=== PATIENT | male | born 1995 | race Two or more races ===

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

== ENCOUNTER 2017-01-29 14:13 | Emergency (ER) | payer MEDICARE, OTHER, MEDICAID ==
[~2017-01-29] VITALS: Ht 152.4 cm; Wt 52.3 kg
[2017-01-29] MEDS ORDERED: GUAN1TA (14:31)
[2017-01-29] MEDS ORDERED: RISP0.5T3 (14:31)
[2017-01-29] MEDS ORDERED: ALPR0.5T3 (14:31)
[2017-01-29] MEDS ORDERED: GABA600T (14:31)
[2017-01-29] MEDS ORDERED: DEXM1CAP16 (14:31)
[2017-01-29] MEDS ORDERED: CLON-412 (14:31)
[2017-01-29] MEDS ORDERED: GABA-282 (14:31)
[2017-01-29] MEDS ORDERED: CLON0.5T (14:31)
[2017-01-29] MEDS ORDERED: RISP1TAB3 (14:31)
[2017-01-29 18:50] LABS: BASO # 0.1 K/mm3 (0.0-0.2); BASO % 0.9 % (0.0-1.0); EOS # 0.4 K/mm3 (0.0-0.50); EOS % 5.2 % (0.0-3.0); LARGE UNSTAINED CELL # 0.2 K/mm3 (0.0-0.4); LARGE UNSTAINED CELL % 1.9 % (0.0-4.0); LYMPH % 34.6 % (24.0-44.0); MEAN CORPUSCULAR HEMOGLOBIN 31.1 pg (27.0-33.0); MEAN CORPUSCULAR HGB CONC 35.8 g/dl (32.0-36.5); MONO # 0.4 K/mm3 (0.0-0.8); MONO % 4.9 % (0.0-5.0); NEUTROPHILS # 4.3 K/mm3 (1.8-7.7); NEUTROPHILS % 52.5 % (36.0-66.0); PLATELET COUNT, AUTOMATED 214 k/mm3 (150-450); RED CELL DISTRIBUTION WIDTH 11.9 % (11.5-14.5); WHITE BLOOD COUNT 8.2 K/mm3 (4.0-10.0)
[2017-01-29 19:08] LABS: ALBUMIN 4.4 GM/DL (3.2-5.2); ALBUMIN/GLOBULIN RATIO 1.33 (1.00-1.93); BILIRUBIN,DIRECT 0.1 MG/DL (0.0-0.2); BILIRUBIN,TOTAL 0.4 MG/DL (0.2-1.0); TOTAL PROTEIN 7.7 GM/DL (6.4-8.2)
[2017-01-29 19:15] LABS: ANION GAP 8 MEQ/L (8-16); BLOOD UREA NITROGEN 21 MG/DL (7-18); CALCIUM LEVEL 8.8 MG/DL (8.5-10.1); CARBON DIOXIDE LEVEL 29 MEQ/L (21-32); CHLORIDE LEVEL 103 MEQ/L (98-107); CREATININE FOR GFR 0.71 MG/DL (0.70-1.30); GLUCOSE, FASTING 94 MG/DL (70-105); POTASSIUM SERUM 3.6 MEQ/L (3.5-5.1); SODIUM LEVEL 140 MEQ/L (136-145)
[2017-01-29] MEDS ORDERED: CETIRIZINE (ZyrTEC) 10 MG TAB PO ONE (20:00)
[2017-01-29] MEDS ORDERED: risperiDONE 2 MG TAB PO ONE (20:00)
[2017-01-29] MEDS ORDERED: GABAPENTIN 300 MG CAP PO ONE (20:00)
[2017-01-29] MEDS ORDERED: cloNIDine 0.1 MG TAB PO ONE (20:00)
[2017-01-29] MEDS ORDERED: guanFACINE 1 MG TAB PO ONE (21:00)
[2017-01-29] MEDS ORDERED: XANA0.5T PO (21:36)
[2017-01-29] MEDS ORDERED: RISP1TAB3 PO (21:36)
[2017-01-29] MEDS ORDERED: RISP2TAB32 PO (21:36)
[2017-01-29] MEDS ORDERED: RISP0.5T3 PO (21:48)
[2017-01-29] MEDS ORDERED: ALPRAZolam 0.25 MG TAB PO ONE (22:15)
[2017-01-30] MEDS ORDERED: INTU1TAB PO (12:18)
[2017-01-30] MEDS ORDERED: CLON0.5T PO (12:18)
[2017-01-30] MEDS ORDERED: CETI1SYP16 PO (12:18)
[2017-01-30] MEDS ORDERED: GABA-282 PO (12:18)
[2017-01-30] MEDS ORDERED: CLONI1TA PO (12:18)
[2017-01-30] MEDS ORDERED: FOCA20CA PO (12:18)
[2017-01-30] MEDS ORDERED: XANA0.5T PO (12:18)
[2017-01-30] MEDS ORDERED: GABA600T PO (12:18)
[2017-01-30] MEDS ORDERED: CETI10TA PO (12:21)
[2017-01-30] MEDS ORDERED: PULM0.25 INH (12:23)
[2017-01-30] MEDS ORDERED: FLON1SPR (12:23)
[2017-01-30] MEDS ORDERED: guanFACINE 1 MG TAB PO SCH (13:15)
[2017-01-30] MEDS ORDERED: GABAPENTIN 300 MG CAP PO ONE (13:15)
[2017-01-30] MEDS ORDERED: clonazePAM 0.5 MG TAB PO ONE (13:15)
[2017-01-30] MEDS ORDERED: risperiDONE 1 MG TAB PO ONE (13:15)
[2017-01-30] MEDS ORDERED: ENTER DRUG NAME HERE (PATIENT'S OWN MED) PO SCH (13:15)
[2017-01-30] MEDS ORDERED: FOCALIN PO ONE (13:15)
[2017-01-30 13:50] VITALS: BP 119/72
[2017-01-30] MEDS ORDERED: GUAN1TA PO (13:53)
[2017-01-30 16:24] VITALS: BP 143/82
--- NOTE | 2017-02-01 10:02 | MHCR ---
DATE: 01/30/2017 CHIEF COMPLAINT: He has been aggressive and agitated. SUBJECTIVE: He is 21 years old, has a history of autism, lives with his parents. He is seen for treatment essentially at a [facility], a local facility here in [place], sees a nurse practitioner there, is on various medications, which include risperidone a total of 3.5 mg daily, clonidine 0.1 mg. He is on clonazepam as well, dose is 0.5 mg but the frequency is unclear and the same applies for the guanfacine and the gabapentin. He is also apparently on dexmethylphenidate at 20 mg daily, as well as alprazolam 0.5 mg daily as needed for anxiety. He has been living with his parents, and I understand there are no outside services that he participates in. He has been increasingly agitated, aggressive over the last several weeks, possibly a couple of months, and medication changes have been made by the nurse practitioner, with limited effect. He has become quite aggressive recently and was aggressive towards his parents. The nurse practitioner was informed and police were called. They, at that time, did not find enough for a pickup letter, as he was calm when they had seen him, and the parents brought him to the hospital later, indicating they were quite concerned about his condition, and ability to maintain their safety as well. Has had no previous inpatient hospitalizations as far as I am aware. It should be noted the history is only available from what was obtained from the parents, and the emergency room (ER) record, the patient is very verbal and tends to repeat himself, and is unable to provide a history. MEDICATIONS: As stated above. SOCIAL HISTORY: Lives with his parents, attends outpatient care, as stated above, no inpatient hospitalizations and no suicide attempts as far as I am aware. Has not received any outside assistance either. MENTAL STATUS EXAM: He is fairly neat. He is in hospital clothes, cooperative but mildly irritable, not very coherent, repetitive, "go home." Affect is restricted in range. Unable to indicate if he has any actual desires or plans to hurt himself or anyone else. At present, does not appear internally preoccupied. There is no fluctuation of consciousness. His sensorium is clear, but I am unable to determine if he is oriented to place or time, given his considerable limitations. ASSESSMENT: Autistic spectrum disorder He has been more agitated, aggressive the last several weeks, possibly couple of months. He lives with his parents, has been increasingly aggressive towards them, and they do not feel safe with him at present. He has had medication changes made by outpatient clinician with limited effect. RECOMMENDATIONS: Would benefit from a respite facility to help decrease his agitation and aggression. In my opinion, it is not in his interest at present to be admitted to an inpatient psychiatry facility, given his considerable limitations, cognitively and verbally, and the nature of an inpatient adult psychiatric facility would most likely increase his distress, and likelihood of further agitation. I understand staff contacted [facility] and they do not have any space at their respite facility at present. He will be kept here overnight in the emergency room and a respite bed will be looked for tomorrow as well (tomorrow is Tuesday). Given the special circumstances, related to his condition, and home situation, the plan was discussed with hospital administration, including Cam Martínez, nurse property manager at the inpatient psychiatry unit, and Lo Cantu, the home administrator for behavioral health. The assessment took 30 minutes.
== END 2017-01-30 16:37 | disposition home or self-care (01) ==
LOC: M ED 15:39
DX: F91.9 Conduct disorder, unspecified (principal); F84.0 Autistic disorder
CPT/HCPCS: 36415; 80048; 80076; 84443; 85025; 99284; G0480

== ENCOUNTER → 2017-03-28 | Outpatient (CLI) | payer MEDICARE, OTHER, MEDICAID ==
[~2017-03-28] MED LIST: ALPR0.5T3; CETI10TA PO; CETI1SYP16 PO; CLON-412; CLON-412 PO; CLON0.5T; CLON0.5T PO; CLONI1TA PO; CYPR4TA PO; DEXM1CAP16; FLON1SPR; FOCA20CA PO; GABA-282; GABA-282 PO; GABA600T; GABA600T PO; GUAN1TA; GUAN1TA PO; INTU1TAB PO; MIRA33504 PO; OLAN10TA2; PEG1POW PO; PULM0.25 INH; RISP0.5T3; RISP0.5T3 PO; RISP1TAB3; RISP1TAB3 PO; RISP2TAB32 PO; XANA0.5T PO; ZYPR10TA PO
[2017-03-28 17:38] LABS: BASO % 0.5 % (0.0-1.0); EOS # 0.2 10^3/uL (0.0-0.50); EOS % 1.9 % (0.0-3.0); IMMATURE GRANULOCYTE % 0.2 % (0-0); LYMPH # 2.5 10^3/uL (1.5-6.5); LYMPH % 29.6 % (24.0-44.0); MEAN CORPUSCULAR HGB CONC 33.8 g/dl (32.0-36.5); MEAN CORPUSCULAR VOLUME 88.7 fl (80.0-96.0); MONO # 0.7 10^3/uL (0.0-0.8); MONO % 7.7 % (0.0-5.0); NEUTROPHILS # 5.1 10^3/uL (1.8-7.7); NEUTROPHILS % 60.1 % (36.0-66.0); PLATELET COUNT, AUTOMATED 235 10^3/uL (150-450); RED CELL DISTRIBUTION WIDTH 11.8 % (11.5-14.5); WHITE BLOOD COUNT 8.5 10^3/uL (4.0-10.0)
[2017-03-28 18:18] LABS: ALBUMIN 4.6 GM/DL (3.2-5.2); ALBUMIN/GLOBULIN RATIO 1.44 (1.00-1.93); ALKALINE PHOSPHATASE 105 U/L (45-117); ALT/SGPT 62 U/L (12-78); ANION GAP 11 MEQ/L (8-16); AST/SGOT 37 U/L (15-37); BILIRUBIN,TOTAL 0.6 MG/DL (0.2-1.0); BLOOD UREA NITROGEN 16 MG/DL (7-18); CALCIUM LEVEL 9.1 MG/DL (8.5-10.1); CARBON DIOXIDE LEVEL 26 MEQ/L (21-32); CHLORIDE LEVEL 104 MEQ/L (98-107); CREATININE FOR GFR 0.96 MG/DL (0.70-1.30); FREE T4 1.48 NG/DL (0.78-1.33); GLUCOSE, FASTING 77 MG/DL (70-105); POTASSIUM SERUM 3.5 MEQ/L (3.5-5.1); SODIUM LEVEL 141 MEQ/L (136-145); TOTAL PROTEIN 7.8 GM/DL (6.4-8.2)
== END ==
LOC: M WUC 14:42
PROVIDERS: ATTEND Physician Assistant
DX: R63.0 Anorexia (principal)

== ENCOUNTER 2017-04-18 10:51 | Observation (INO) | payer MEDICARE, OTHER, MEDICAID ==
[~2017-04-18] VITALS: Ht 154.9 cm; Wt 43.0 kg
[~2017-04-18 10:51] MED LIST changes: -CLON-412 PO; -CYPR4TA PO; -MIRA33504 PO; -OLAN10TA2; -PEG1POW PO; -ZYPR10TA PO
[2017-04-18] MEDS ORDERED: OLAN10TA2 (10:58)
[2017-04-18] MEDS ORDERED: ZYPR10TA PO (10:58)
[2017-04-18] MEDS ORDERED: CYPR4TA PO (10:58)
[2017-04-18] MEDS ORDERED: CLON-412 PO (10:58)
[2017-04-18 11:57] LABS: BASO % 0.6 % (0.0-1.0); EOS % 0.2 % (0.0-3.0); IMMATURE GRANULOCYTE % 0.2 % (0-0); LYMPH # 1.4 10^3/uL (1.5-6.5); LYMPH % 22.6 % (24.0-44.0); MEAN CORPUSCULAR HEMOGLOBIN 29.6 pg (27.0-33.0); MEAN CORPUSCULAR HGB CONC 34.6 g/dl (32.0-36.5); MEAN CORPUSCULAR VOLUME 85.5 fl (80.0-96.0); MONO # 0.8 10^3/uL (0.0-0.8); MONO % 12.2 % (0.0-5.0); NEUTROPHILS # 4.1 10^3/uL (1.8-7.7); NEUTROPHILS % 64.2 % (36.0-66.0); PLATELET COUNT, AUTOMATED 189 10^3/uL (150-450); RED CELL DISTRIBUTION WIDTH 12.1 % (11.5-14.5); WHITE BLOOD COUNT 6.3 10^3/uL (4.0-10.0)
[2017-04-18] MEDS ORDERED: NS 1,000 ML IV ONE ×2 (12:15→14:00)
[2017-04-18 12:46] LABS: ALBUMIN/GLOBULIN RATIO 1.11 (1.00-1.93); ALKALINE PHOSPHATASE 101 U/L (45-117); ALT/SGPT 48 U/L (12-78); ANION GAP 9 MEQ/L (8-16); AST/SGOT 40 U/L (7-37); BILIRUBIN,DIRECT 0.2 MG/DL (0.0-0.2); BILIRUBIN,TOTAL 0.8 MG/DL (0.2-1.0); BLOOD UREA NITROGEN 14 MG/DL (7-18); CALCIUM LEVEL 9.4 MG/DL (8.5-10.1); CARBON DIOXIDE LEVEL 26 MEQ/L (21-32); CHLORIDE LEVEL 103 MEQ/L (98-107); CREATININE FOR GFR 0.68 MG/DL (0.70-1.30); GLUCOSE, FASTING 85 MG/DL (70-105); SODIUM LEVEL 138 MEQ/L (136-145); TOTAL PROTEIN 7.6 GM/DL (6.4-8.2)
[2017-04-18 13:54] LABS: ERYTHROCYTE SEDIMENTATION RATE 20 mm/hr (0-15)
[2017-04-18] MEDS ORDERED: SODIUM CHLORIDE 0.9% 1000 ML IV ONE (17:15)
--- NOTE | 2017-04-18 17:57 | REP ---
CT abdomen and pelvis without IV or oral contrast: History: Abdomen pain. Periumbilical pain. Findings: Preliminary digital release specialist radiograph demonstrates air and stool filled loops of colon and air filled loops of small bowel throughout the abdomen. The lung bases are clear. The liver and the spleen are normal in size and homogeneous in texture. There is some motion artifact. There is low-density fecal content throughout the dilated colon. There is a formed stool ball in the region of the rectosigmoid colon, central pelvis. This measures 6.3 x 6.3 x 6.7 cm. There is no evidence of free intraperitoneal air. Gas distended rectum is seen distal to the formed stool in the sigmoid colon. Study is otherwise unremarkable. No abdominal wall defect or bony destructive lesion seen. Impression: Fecal impaction obstipation noted at the level of the rectosigmoid colon with a 6.6 cm "fecoma". Dilated large and small bowel loops throughout the abdomen. No evidence of free air. Signed by Clifford Duong MD 04/18/2017 07:46 P
[2017-04-18] MEDS ORDERED: ACETAMINOPHEN TAB 650MG DOSE (2X325MG) PO PRN (19:15)
[2017-04-18] MEDS ORDERED: GOLYTELY SOLN 4000 ML BTL PO ONE (19:15)
[2017-04-18] MEDS ORDERED: ONDANSETRON 4MG/2ML VIAL (J2405) IV PRN (19:15)
[2017-04-18] MEDS ORDERED: LORazepam 2 MG/ML VIAL (J2060) IV STA ×3 (19:34→19:45)
[2017-04-18] MEDS ORDERED: MIRA33504 PO (19:42)
[2017-04-18 19:57] LABS: T UPTAKE 33 % (33-40); THYROXINE (T4) 12.4 UG/DL (6.0-11.6)
[2017-04-18] MEDS ORDERED: SODIUM CHLORIDE NASAL 0.65% SPRAY BTL (OCEAN) PRN (20:15)
[2017-04-18] MEDS: OLANZapine 10 MG TAB PO SCH (21:00)
[2017-04-18] MEDS: guanFACINE 1 MG TAB PO SCH (21:00)
[2017-04-18] MEDS: FLUTICASONE PROP 0.05% NASAL SPRAY 16 GM (FLONASE) SCH (21:00)
[2017-04-18 21:37] VITALS: BP 120/79
[2017-04-18] MEDS: GABAPENTIN 300 MG CAP PO SCH (22:26)
[2017-04-18] MEDS: cloNIDine 0.1 MG TAB PO SCH (22:27)
[2017-04-18] MEDS: CETIRIZINE (ZyrTEC) 10 MG TAB PO SCH (22:27)
[2017-04-18] MEDS: NS 1,000 ML IV SCH (22:28)
--- NOTE | 2017-04-19 04:21 | HPEPDOC ---
General Date of Admission Apr 18, 2017 at 19:11 Primary Care Physician: PETE ANDERSON MD Attending Physician: CHERYL BLANCO MD Chief Complaint The patient is a 22-year-old male admitted with a reason for visit of Fecal Impaction. History of Present Illness Patient is a 22 yo male with PMH significant for Autism, ADHD, and chronic constipation presents emergency room with constipation and fecal impaction. Patient had appointment to establish care with Dr. Anderson today. Had been sent over to the ER to be evaluated for kidney function because on UA patient had sediment. Upon arrival patient has chronic constipation often. For the past 4-6 weeks he has had off and on fevers. Not eating as much as he used to. Only eating applesauce and yogurt. Used to eat regular foods prior. Has been spitting out his food and not finishing meals. Has had temperatures from 101 to 103F. Been being treated with Motrin and Tylenol. Since patient has autism does not express many symptoms. Does report occasional tummy aches but this is normal for him. Does have a cough but is nonproductive. Hasn't having runny noses and is being treated with sertraline and Flonase. No pain reported. Last bowel movement was this morning. No bloody or dark tarry stool. Home Medications Scheduled (Flonase Allergy Relief) 50 Mcg/Act Spr, 2 SPRAYS NA QHS, (Reported) Budesonide (Pulmicort) 0.25 Mg/2 Ml Myla, 0.25 MG INH BID, (Reported) Cetirizine HCl (Cetirizine HCl) 10 Mg Tab, 10 MG PO QHS, (Reported) Clonidine Hcl (Catapres) 0.1 Mg Tab, 0.05 MG PO QPM, (Reported) Cyproheptadine HCl (Cyproheptadine HCl) 4 Mg Tab, 4 MG PO DAILY, (Reported) Gabapentin (Gabapentin) 300 Mg Cap, 300 MG PO BID, (Reported) Guanfacine HCl (Guanfacine HCl) 1 Mg Tab, 1 MG PO TID, (Reported) Olanzapine (Zyprexa) 10 Mg Tab, 10 MG PO BID, (Reported) TAKES @ 1100 & HS Polyethylene Glycol (Peg 3350) 1 Pkt Pow, 1 PKT PO DAILY Scheduled PRN Clonidine Hydrochloride (Clonidine HCl) 0.1 Mg Tab, 0.1 MG PO PRN PRN for AGITATION, (Reported) Allergies Coded Allergies: Clarithromycin (Unverified Allergy, Mild, N/V/D, 01/29/17) Past Medical History Medical History Autism Chronic hep B D Chronic constipation ADHD Surgical History Deny Social History Patient was a home with parents. Patient is adopted. Review of Symptoms Constitutional: Reports: Fever, Other (results systems difficult to obtain due to autism. Some obtained from family members.), Denies: Chills Eyes: Denies: Pain, Vision change Gastrointestinal: Reports: Abdominal Pain (occasional) Physical Examination General Exam: Positive: Alert, Mild Distress, Other (Somewhat uncoporative. Attempted to rip out IV. ) Eye Exam: Positive: PERRLA, EOMI, Negative: Ptosis ENT Exam: Positive: Atraumatic, Nares Patent, Other ENT (White exudates tongue) Neck Exam: Positive: Supple Chest Exam: Positive: Clear to auscultation, Negative: Rales, Wheezing Heart Exam: Positive: Rate Normal, Normal S1, Normal S2, Negative: Murmurs Abdomen Exam: Positive: BS Hyperactive, Soft, Negative: Tenderness, Hepatospenomegaly Extremity Exam: Negative: Clubbing, Cyanosis, Edema Skin Exam: Negative: Rash, Breakdown Neuro Exam: Positive: Strength at 5/5 X4 ext Vital Signs Vital Signs Date Time Temp Pulse Resp B/P (MAP) Pulse Ox O2 Delivery O2 Flow Rate FiO2 04/18/17 17:32 99.3 74 20 124/76 (92) 97 Room Air 99.3 Laboratory Data Labs 24H Laboratory Tests 2 04/18/17 11:45: Immature Granulocyte % (Auto) 0.2H, White Blood Count 6.3, Red Blood Count 5.17 , Hemoglobin 15.3, Hematocrit 44.2, Mean Corpuscular Volume 85.5, Mean Corpuscular Hemoglobin 29.6, Mean Corpuscular Hemoglobin Concent 34.6, Red Cell Distribution Width 12.1, Platelet Count 189, Neutrophils (%) (Auto) 64.2, Lymphocytes (%) (Auto) 22.6L, Monocytes (%) (Auto) 12.2H, Eosinophils (%) (Auto ) 0.2, Basophils (%) (Auto) 0.6, Neutrophils # (Auto) 4.1, Lymphocytes # (Auto) 1.4L, Monocytes # (Auto) 0.8, Eosinophils # (Auto) 0.0, Basophils # (Auto) 0.0, Immature Granulocyte # (Auto) 0.0, Nucleated Red Blood Cells % (auto) 0.0, Erythrocyte Sedimentation Rate 20H, Anion Gap 9, Calcium Level 9.4, Aspartate Amino Transf (AST/SGOT) 40H, Alanine Aminotransferase (ALT/SGPT) 48, Alkaline Phosphatase 101, Total Bilirubin 0.8, Direct Bilirubin 0.2, C-Reactive Protein, Quantitative 7.81H, Total Protein 7.6, Albumin 4.0, Albumin/Globulin Ratio 1.11 , Lipase 68L, Thyroid Stimulating Hormone (TSH) 1.250, Free Thyroxine Index 4.1H , Thyroxine (T4) 12.4H, Triiodothyronine (T3) Uptake 33 04/18/17 16:02: Urine Appearance CLOUDYH, Urine Color YELLOW, Urine pH 7.0, Urine Specific [place] 1.014, Urine Protein NEGATIVE, Urine Glucose (UA) NEGATIVE, Urine Ketones 2+H, Urine Urobilinogen 0.2, Urine Bilirubin NEGATIVE, Urine Leukocyte Esterase NEGATIVE, Urine Blood NEGATIVE, Urine Nitrite NEGATIVE, Urine WBC (Auto ) 1, Urine RBC (Auto) 2, Urine Hyaline Casts (Auto) 0, Urine Bacteria (Auto) NEGATIVE, Urine Squamous Epithelial Cells 0, Urine Amorphous Sediment MODERATEH , Urine Mucus (Auto) SMALL, Urine Sperm (Auto) CBC/BMP Laboratory Tests 04/18/17 11:45 Red Blood Count 5.17, Mean Corpuscular Volume 85.5, Mean Corpuscular Hemoglobin 29.6, Mean Corpuscular Hemoglobin Concent 34.6, Red Cell Distribution Width 12.1 , Neutrophils (%) (Auto) 64.2, Lymphocytes (%) (Auto) 22.6 L, Monocytes (%) ( Auto) 12.2 H, Eosinophils (%) (Auto) 0.2, Basophils (%) (Auto) 0.6, Neutrophils # (Auto) 4.1, Lymphocytes # (Auto) 1.4 L, Monocytes # (Auto) 0.8, Eosinophils # (Auto) 0.0, Basophils # (Auto) 0.0 Assessment/Plan 1. Fecal Impaction CT scan of abdomen and pelvis patient has noted fecal impaction and fecoma. Dilated small and large bowel loops throughout abdomen. No free air. Patient will need to have manual disimpaction. The patient magnesium citrate and enema. 2. Nasal congestion Continue patient on Flonase, sertraline, nasal saline. 3. Autism Continue medications. 4. ADHD Continue with medications. 5. Constipation, chronic Patient's chronic constipation normally. Monitoring stooling for now. Last BM was morning daily admission. 6. Oral thrush Started patient on statin oral. Monitor. Plan / VTE VTE Prophylaxis Ordered?: Yes (Lovenox) GME ATTESTATION GME ATTESTATION My preceptor for this patient encounter was physically present in the building during the encounter and was fully available. As needed, all aspects of the patient interview, examination, medical decision making process, and medical care plan development were reviewed and approved by the preceptor. Preceptor is aware and concurs with the plan as stated in the body of this note and will attest to such by his/her cosignature. TYRONE MACHADO DO Apr 18, 2017 20:10 CHERYL BLANCO MD Apr 25, 2017 12:29
[2017-04-19] MEDS: NS 1,000 ML IV SCH (05:11)
[2017-04-19 06:00] VITALS: BP 117/68
[2017-04-19] MEDS: BUDESONIDE 0.25 MG/2 ML INHALATION SUSPENSION INH SCH ×3 (07:24→20:52)
[2017-04-19 07:44] LABS: BASO % 0.3 % (0.0-1.0); EOS # 0.1 10^3/uL (0.0-0.50); EOS % 0.7 % (0.0-3.0); IMMATURE GRANULOCYTE % 0.3 % (0-0); LYMPH # 1.9 10^3/uL (1.5-6.5); MEAN CORPUSCULAR HEMOGLOBIN 29.5 pg (27.0-33.0); MEAN CORPUSCULAR HGB CONC 34.8 g/dl (32.0-36.5); MEAN CORPUSCULAR VOLUME 84.7 fl (80.0-96.0); MONO # 0.7 10^3/uL (0.0-0.8); MONO % 9.9 % (0.0-5.0); NEUTROPHILS # 4.2 10^3/uL (1.8-7.7); NEUTROPHILS % 60.8 % (36.0-66.0); PLATELET COUNT, AUTOMATED 197 10^3/uL (150-450); RED CELL DISTRIBUTION WIDTH 11.9 % (11.5-14.5); WHITE BLOOD COUNT 6.9 10^3/uL (4.0-10.0)
[2017-04-19 08:08] LABS: ANION GAP 11 MEQ/L (8-16); BLOOD UREA NITROGEN 8 MG/DL (7-18); CALCIUM LEVEL 8.9 MG/DL (8.5-10.1); CARBON DIOXIDE LEVEL 22 MEQ/L (21-32); CHLORIDE LEVEL 106 MEQ/L (98-107); CREATININE FOR GFR 0.65 MG/DL (0.70-1.30); GLUCOSE, FASTING 77 MG/DL (70-105); POTASSIUM SERUM 4.1 MEQ/L (3.5-5.1); SODIUM LEVEL 139 MEQ/L (136-145)
[2017-04-19] MEDS: OLANZapine 10 MG TAB PO SCH ×2 (08:55→20:13)
[2017-04-19] MEDS: ENOXAPARIN 40 MG/0.4 ML SYRINGE (J1650) SC SCH (08:55)
[2017-04-19] MEDS: NYSTATIN 500,000 U/5 ML SUSP UDC SS SCH ×2 (08:55→20:16)
[2017-04-19] MEDS: GABAPENTIN 300 MG CAP PO SCH ×2 (08:55→20:16)
[2017-04-19] MEDS: guanFACINE 1 MG TAB PO SCH ×3 (08:55→20:16)
[2017-04-19] MEDS ORDERED: MAGNESIUM CITRATE 300 ML BTL PO ONE (09:00)
[2017-04-19 09:24] VITALS: BP 107/64
[2017-04-19] MEDS: CYPROHEPTADINE 4 MG TAB PO SCH (09:53)
[2017-04-19 12:30] VITALS: BP 110/62
[2017-04-19 14:00] VITALS: BP 108/67
--- NOTE | 2017-04-19 15:20 | REP ---
KUB: Two views. History: Abdomen pain. Comparison: KUB study April 14, 2017. Findings: Bowel gas pattern is improved. The large bowel no longer contains any visible stool. There is minimal gaseous distension of small and large bowel loops diffusely. The large stool ball visible in the central pelvis on April 14, 2017 is no longer apparent. There is soft tissue fullness filling the pelvis suggesting a somewhat distended urinary bladder. No other abnormality. Impression: Much improved bowel gas pattern. Signed by Clifford Duong MD 04/19/2017 05:19 P
--- NOTE | 2017-04-19 15:43 | IPNPDOC ---
Date Seen The patient was seen on 04/19/17. Progress Note SUBJECTIVE: Patient is a 22 yo mentally challenged gentleman continuing with [employer] for stool impaction. Caregivers seem to think he's less agitated today. No specific complaints today. OBJECTIVE PHYSICAL EXAMINATION: VITAL SIGNS: Please see below. GENERAL: NAD, A&O X 3 HEENT: PERRLA, throat clear, no JVD CARDIOVASCULAR: RRR. RESPIRATORY: CTA bilaterally. ABDOMINAL: soft, NT/ND, normoactive bowel sounds EXTREMITIES: no edema, no calf tenderness NEUROLOGICAL: CN II-XII Grossly intact PSYCHOLOGICAL: negative LABORATORY DATA: Please see below. MICROBIOLOGY: Please see below. IMAGING: kub: The large stool ball visible in the central pelvis on April 14, 2017 is no longer apparent. There is soft tissue fullness filling the pelvis suggesting a somewhat distended urinary bladder DVT prophylaxis ordered?: yes ASSESSMENT AND PLAN: This is a 22 yo with admitted for stool impaction, appears to have resolved. PROBLEMS: 1. Fecal Impaction Appears to have cleared, start on miralax daily. 2. Nasal congestion Continue patient on Flonase, sertraline, nasal saline. 3. Autism Continue medications. 4. ADHD Continue with medications. 5. Constipation, chronic Patient's chronic constipation normally. Monitoring stooling for now. Last BM was morning daily admission. 6. Oral thrush Started patient on statin oral. Monitor. Disposition: anticipate discharge in next 24-48 hrs VS, I&O, 24H, Fishbone Vital Signs/I&O Vital Signs Date Time Temp Pulse Resp B/P (MAP) Pulse Ox O2 Delivery O2 Flow Rate FiO2 04/19/17 14:00 98.9 102 18 108/67 (81) 97 Room Air I&O- Last 24 Hours up to 6 AM 04/20/17 06:00 Intake Total 120 ml Balance 120 ml Laboratory Data 24H LABS Laboratory Tests 2 04/18/17 16:02: Urine Appearance CLOUDYH, Urine Color YELLOW, Urine pH 7.0, Urine Specific [place] 1.014, Urine Protein NEGATIVE, Urine Glucose (UA) NEGATIVE, Urine Ketones 2+H, Urine Urobilinogen 0.2, Urine Bilirubin NEGATIVE, Urine Leukocyte Esterase NEGATIVE, Urine Blood NEGATIVE, Urine Nitrite NEGATIVE, Urine WBC (Auto ) 1, Urine RBC (Auto) 2, Urine Hyaline Casts (Auto) 0, Urine Bacteria (Auto) NEGATIVE, Urine Squamous Epithelial Cells 0, Urine Amorphous Sediment MODERATEH , Urine Mucus (Auto) SMALL, Urine Sperm (Auto) 04/19/17 07:21: Immature Granulocyte % (Auto) 0.3H, White Blood Count 6.9, Red Blood Count 4.71 , Hemoglobin 13.9L, Hematocrit 39.9L, Mean Corpuscular Volume 84.7, Mean Corpuscular Hemoglobin 29.5, Mean Corpuscular Hemoglobin Concent 34.8, Red Cell Distribution Width 11.9, Platelet Count 197, Neutrophils (%) (Auto) 60.8, Lymphocytes (%) (Auto) 28.0, Monocytes (%) (Auto) 9.9H, Eosinophils (%) (Auto) 0.7, Basophils (%) (Auto) 0.3, Neutrophils # (Auto) 4.2, Lymphocytes # (Auto) 1.9, Monocytes # (Auto) 0.7, Eosinophils # (Auto) 0.1, Basophils # (Auto) 0.0, Immature Granulocyte # (Auto) 0.0, Nucleated Red Blood Cells % (auto) 0.0, Anion Gap 11, Blood Urea Nitrogen 8, Creatinine 0.65L, Sodium Level 139, Potassium Level 4.1, Chloride Level 106, Carbon Dioxide Level 22, Calcium Level 8.9, Magnesium Level 2.0 CBC/BMP Laboratory Tests 04/19/17 07:21 Red Blood Count 4.71, Mean Corpuscular Volume 84.7, Mean Corpuscular Hemoglobin 29.5, Mean Corpuscular Hemoglobin Concent 34.8, Red Cell Distribution Width 11.9 , Neutrophils (%) (Auto) 60.8, Lymphocytes (%) (Auto) 28.0, Monocytes (%) (Auto ) 9.9 H, Eosinophils (%) (Auto) 0.7, Basophils (%) (Auto) 0.3, Neutrophils # ( Auto) 4.2, Lymphocytes # (Auto) 1.9, Monocytes # (Auto) 0.7, Eosinophils # (Auto ) 0.1, Basophils # (Auto) 0.0, Calcium Level 8.9 BAYLEE CANTU DO Apr 19, 2017 15:43
[2017-04-19] MEDS: MIRALAX *UNIT DOSE* 17GM PACKET PO SCH (16:39)
[2017-04-19] MEDS: cloNIDine 0.1 MG TAB PO SCH (20:16)
[2017-04-19] MEDS: CETIRIZINE (ZyrTEC) 10 MG TAB PO SCH (20:17)
[2017-04-19] MEDS: FLUTICASONE PROP 0.05% NASAL SPRAY 16 GM (FLONASE) SCH (21:00)
[2017-04-19 22:00] VITALS: BP 125/72
[2017-04-20 06:00] VITALS: BP 113/64
[2017-04-20 06:35] LABS: MEAN CORPUSCULAR HEMOGLOBIN 29.6 pg (27.0-33.0); MEAN CORPUSCULAR HGB CONC 35.3 g/dl (32.0-36.5); PLATELET COUNT, AUTOMATED 217 10^3/uL (150-450); RED CELL DISTRIBUTION WIDTH 11.9 % (11.5-14.5); WHITE BLOOD COUNT 5.9 10^3/uL (4.0-10.0)
[2017-04-20 06:42] LABS: ADD MANUAL DIFFER YES; DIFF SLIDE NUMBER 67; POSITIVE MORPH POS FLAG
[2017-04-20 06:51] LABS: ANION GAP 6 MEQ/L (8-16); BLOOD UREA NITROGEN 4 MG/DL (7-18); CALCIUM LEVEL 8.9 MG/DL (8.5-10.1); CARBON DIOXIDE LEVEL 28 MEQ/L (21-32); CHLORIDE LEVEL 107 MEQ/L (98-107); CREATININE FOR GFR 0.57 MG/DL (0.70-1.30); GLUCOSE, FASTING 124 MG/DL (70-105); POTASSIUM SERUM 3.6 MEQ/L (3.5-5.1); SODIUM LEVEL 141 MEQ/L (136-145)
[2017-04-20] MEDS: BUDESONIDE 0.25 MG/2 ML INHALATION SUSPENSION INH SCH (07:10)
[2017-04-20 07:23] LABS: EOSINOPHILS 3 % (0-5)
[2017-04-20] MEDS ORDERED: PEG1POW PO (07:33)
[2017-04-20] MEDS: ENOXAPARIN 40 MG/0.4 ML SYRINGE (J1650) SC SCH (08:55)
[2017-04-20] MEDS ORDERED: INFLUENZA QUADRIVALENT PF VACCINE 0.5ML SYRINGE (90686) IM ONE (09:00)
[2017-04-20] MEDS: MIRALAX *UNIT DOSE* 17GM PACKET PO SCH (09:29)
[2017-04-20] MEDS: NYSTATIN 500,000 U/5 ML SUSP UDC SS SCH (09:29)
[2017-04-20 09:30] VITALS: BP 113/64
[2017-04-20] MEDS: CYPROHEPTADINE 4 MG TAB PO SCH (09:30)
[2017-04-20] MEDS: guanFACINE 1 MG TAB PO SCH (09:30)
[2017-04-20] MEDS: GABAPENTIN 300 MG CAP PO SCH (09:30)
[2017-04-20] MEDS: OLANZapine 10 MG TAB PO SCH (09:30)
--- NOTE | 2017-04-20 11:45 | DS.PDOC ---
Discharge Summary General Date of Admission Apr 18, 2017 at 19:11 Date of Discharge Apr 20, 2017 Primary Care Physician: PETE VELASQUEZ MD Attending Physician: BAYLEE CANTU DO Discharge Summary PROCEDURES PERFORMED DURING STAY: None. CONSULTANTS: NONE COMPLICATIONS: NONE ADMITTING DIAGNOSES / DISCHARGE DIAGNOSES: 1. Fecal Impaction WITH CHRONIC CONSTIPATION 2. Nasal congestion 3. Autism 4. ADHD 5. Oral thrush: RESOLVED HOSPITAL COURSE: Briefly, a 22yo autistic male admitted for abdominal pain and noted fecal impaction. Took several attempts to clear with medical managment. Attempted to avoid mechanical disimpaction due to patient's level of anxiety. After use of laxatives, tap water enema and Miralax patient cleared stool yesterday and repeat KUB demonstrated no further issues. He was watched over night and tolerated PO intake without any further issues or complaints of abdominal pain, n/v/d. Very pleasant to talk to this morning and ready to go home. Instructed care givers to continue with high fiber diet and miralax daily. DISCHARGE MEDICATIONS: Please see below. ALLERGIES: Please see below. PHYSICAL EXAMINATION ON DISCHARGE: VITAL SIGNS: Please see below. PHYSICAL EXAMINATION: VITAL SIGNS: Please see below. GENERAL: NAD, Alert HEENT: PERRLA, throat clear, no JVD CARDIOVASCULAR: RRR. RESPIRATORY: CTA bilaterally. ABDOMINAL: soft, NT/ND, normoactive bowel sounds EXTREMITIES: no edema, no calf tenderness NEUROLOGICAL: CN II-XII Grossly intact PSYCHOLOGICAL: negative LABORATORY DATA: Please see below. DISPOSITION: 01 Home, Self-Care. DISCHARGE CONDITION: Stable. DISCHARGE PLAN: Home ACTIVITY: As tolerated. DIET: high fiber diet. Seek medical attention should symptoms worsen. Use Miralax daily. TRANSITION OF CARE ISSUES: None TIME SPENT ON DISCHARGE: Greater than 35 minutes. Vital Signs/I&Os Vital Signs Date Time Temp Pulse Resp B/P (MAP) Pulse Ox O2 Delivery O2 Flow Rate FiO2 04/20/17 09:30 113/64 04/20/17 08:00 Room Air 04/20/17 06:00 99.0 106 16 98 I&O- Last 24 Hours up to 6 AM 04/21/17 06:00 Intake Total 120 ml Balance 120 ml Laboratory Data Labs 24H Laboratory Tests 2 04/20/17 06:06: Nucleated Red Blood Cells % (auto) 0.0, Neutrophils 67, Lymphocytes (Manual) 12L , Monocytes (Manual) 13H, Eosinophils (Manual) 3, Atypical Lymphocytes 5, Platelet Estimate NORMAL, Red Blood Cell Morphology NORMAL, Anion Gap 6L, Blood Urea Nitrogen 4L, Creatinine 0.57L, Sodium Level 141, Potassium Level 3.6, Chloride Level 107, Carbon Dioxide Level 28, Calcium Level 8.9 CBC/BMP Laboratory Tests 04/20/17 06:06 Red Blood Count 4.76, Mean Corpuscular Volume 84.0, Mean Corpuscular Hemoglobin 29.6, Mean Corpuscular Hemoglobin Concent 35.3, Red Cell Distribution Width 11.9 , Calcium Level 8.9 Discharge Medications Scheduled (Flonase Allergy Relief) 50 Mcg/Act Spr, 2 SPRAYS NA QHS, (Reported) Budesonide (Pulmicort) 0.25 Mg/2 Ml Myla, 0.25 MG INH BID, (Reported) Cetirizine HCl (Cetirizine HCl) 10 Mg Tab, 10 MG PO QHS, (Reported) Clonidine Hcl (Catapres) 0.1 Mg Tab, 0.05 MG PO QPM, (Reported) Cyproheptadine HCl (Cyproheptadine HCl) 4 Mg Tab, 4 MG PO DAILY, (Reported) Gabapentin (Gabapentin) 300 Mg Cap, 300 MG PO BID, (Reported) Guanfacine HCl (Guanfacine HCl) 1 Mg Tab, 1 MG PO TID, (Reported) Olanzapine (Zyprexa) 10 Mg Tab, 10 MG PO BID, (Reported) TAKES @ 1100 & HS Polyethylene Glycol (Peg 3350) 1 Pkt Pow, 1 PKT PO DAILY Scheduled PRN Clonidine Hydrochloride (Clonidine HCl) 0.1 Mg Tab, 0.1 MG PO PRN PRN for AGITATION, (Reported) Allergies Coded Allergies: Clarithromycin (Unverified Allergy, Mild, N/V/D, 01/29/17) BAYLEE CANTU DO Apr 20, 2017 11:45
== END 2017-04-20 09:35 | disposition home or self-care (01) ==
LOC: M ED 10:51 → M ED INP 19:11 → M MSPAV 20:42
PROVIDERS: ADMIT General Practice; ATTEND Hospitalist
DX: K56.41 Fecal impaction (principal); R09.81 Nasal congestion; F84.0 Autistic disorder; F90.9 Attention-deficit hyperactivity disorder, unspecified type; B37.0 Candidal stomatitis; Z79.899 Other long term (current) drug therapy; Z88.1 Allergy status to other antibiotic agents
CPT/HCPCS: 36415; 74000; 74176; 80048; 80076; 81001; 81002; 83690; 83735; 84436; 84443; 84479; 85025; 85652; 86140; 90686; 94640; 96361; 96374; 96375; 96376; 99284; G0008; G0378; G0463; J1650; J2060

== ENCOUNTER → 2017-04-22 | Outpatient (REF) | payer MEDICARE ==
[~2017-04-22] MED LIST changes: +CLON-412 PO; +CYPR4TA PO; +MIRA33504 PO; +OLAN10TA2; +PEG1POW PO; +ZYPR10TA PO
== END ==
LOC: M SFHCPLAZ 17:02
PROVIDERS: ATTEND Family Medicine
DX: R80.9 Proteinuria, unspecified (principal)
CPT/HCPCS: 81001; G0463

== ENCOUNTER → 2017-04-25 | Outpatient (CLI) | payer MEDICARE, OTHER, MEDICAID ==
[2017-04-25 14:40] LABS: ALBUMIN 4.4 GM/DL (3.2-5.2); ALBUMIN/GLOBULIN RATIO 1.16 (1.00-1.93); ALKALINE PHOSPHATASE 109 U/L (45-117); ALT/SGPT 69 U/L (12-78); ANION GAP 5 MEQ/L (8-16); AST/SGOT 39 U/L (7-37); BILIRUBIN,TOTAL 0.5 MG/DL (0.2-1.0); BLOOD UREA NITROGEN 10 MG/DL (7-18); CALCIUM LEVEL 9.6 MG/DL (8.5-10.1); CARBON DIOXIDE LEVEL 31 MEQ/L (21-32); CHLORIDE LEVEL 102 MEQ/L (98-107); CREATININE FOR GFR 0.72 MG/DL (0.70-1.30); GLUCOSE, FASTING 98 MG/DL (70-105); POTASSIUM SERUM 4.3 MEQ/L (3.5-5.1); SODIUM LEVEL 138 MEQ/L (136-145); TOTAL PROTEIN 8.2 GM/DL (6.4-8.2)
== END ==
LOC: M WUC 09:47
PROVIDERS: ATTEND Physician Assistant
DX: R80.9 Proteinuria, unspecified (principal); R63.4 Abnormal weight loss
CPT/HCPCS: 36415; 80053; 81001; 87389; G0463

== ENCOUNTER → 2017-05-16 | Outpatient (CLI) | payer MEDICARE, OTHER, MEDICAID ==
--- NOTE | 2017-05-16 09:34 | REP ---
COMPLETE ABDOMINAL ULTRASOUND: 05/16/2017. Clinical history: Hepatitis B, unspecified. Comparison CT 04/18/2017, limited abdominal ultrasound 04/09/2016. Findings: Examination was technically challenging due to abundant upper abdominal bowel gas and stomach gas. The liver is homogeneous in its echotexture except for a right lobe hyperechoic focus 5 x 5 x 4 mm. This is consistent with small hemangioma. It cannot be seen on the previous noncontrast CT. It is not visible on the previous images although could be obscured by shadowing. Only limited intercostal windows are available on each scan. The mid aspect of liver is not visible on today's study. The liver has coarsened echotexture overall. No biliary dilatation or adjacent ascites. No cyst. Gallbladder has normal wall thickness of 1 mm. No mass, stone, tenderness or other acute finding. There is some reverberation artifact evident. The common duct is 3.4 mm without a filling defect. Pancreas is not visible due to extensive gas shadowing. The spleen is 9.7 cm long and without mass, enlargement or focal lesion. Smooth margins seen. No adjacent ascites. Kidneys are difficult to evaluate because of gas shadowing. The right is 9.6 x 5.2 x 4.8 cm. The left is 9.3 x 4.9 x 3.4 cm. The abdominal aorta is not visualized. There was no ascites around the liver. A trace amount of fluid adjacent to the spleen tip in the left upper quadrant. Impression: 1. Somewhat coarsened echotexture of the liver without gross hepatic mass. There is a tiny 5 x 5 x 4 mm diffusely hyperechoic focus without shadowing. This is consistent with small meningioma. 2. No intrahepatic biliary dilatation, common duct dilatation, acute gallbladder finding or abnormalities of the visualized kidney and spleen. A trace amount of fluid at the inferior margin of the spleen noted but not around the liver. Pancreas completely obscured by gas shadowing. Signed by Fabrice Kuo MD 05/17/2017 05:49 P
== END ==
LOC: M RAD 07:28
PROVIDERS: ATTEND Internal Medicine Gastroenterology
DX: B19.10 Unspecified viral hepatitis B without hepatic coma (principal)

== ENCOUNTER → 2017-05-23 | Outpatient (REF) | payer MEDICARE, OTHER, MEDICAID ==
[2017-05-23 13:05] LABS: BACTERIA, URINE NONE SEEN; HYALINE CAST, URINE NONE SEEN /lpf (0-1); MICROSCOPIC EXAM PERFORMED; RBC, URINE NONE SEEN /hpf (0-3); SQUAMOUS EPITHELIAL CELL URINE NONE SEEN /hpf (SMALL AMT); WBC, URINE NONE SEEN /hpf (0-3)
== END ==
LOC: M SFHCPLAZ 12:10
PROVIDERS: ATTEND Family Medicine
DX: R80.9 Proteinuria, unspecified (principal)

== ENCOUNTER → 2017-06-10 | Outpatient (CLI) | payer MEDICARE, OTHER, MEDICAID ==
[2017-06-10 18:12] LABS: ALBUMIN 4.3 GM/DL (3.2-5.2); ALBUMIN/GLOBULIN RATIO 1.43 (1.00-1.93); ALKALINE PHOSPHATASE 104 U/L (45-117); ALT/SGPT 68 U/L (12-78); AST/SGOT 42 U/L (7-37); BILIRUBIN,DIRECT 0.1 MG/DL (0.0-0.2); BILIRUBIN,TOTAL 0.4 MG/DL (0.2-1.0); FERRITIN 93 NG/ML (26-388); PERCENT SATURATION 34.1 % (19.7-50.0); TOTAL IRON BINDING CAPACITY 252 UG/DL (250-450); TOTAL PROTEIN 7.3 GM/DL (6.4-8.2)
[2017-06-13 11:47] LABS: HEP C VIRUS AB SCREEN MEDICARE < 0.0 INDEX (<0.8)
[2017-07-01 11:04] LABS: HEPATITIS D VIRUS DETECTED
[2017-07-07 08:36] LABS: SJOGREN'S ANTI SS-A 0.2; SJOGREN'S ANTI SS-B <0.2
[2017-07-07 09:20] LABS: ANA COMMENT See below:
[2017-07-07 09:32] LABS: HBV TEST INFO Test Information:
== END ==
LOC: M WUC 11:21
DX: B19.10 Unspecified viral hepatitis B without hepatic coma (principal)
CPT/HCPCS: 83550

== ENCOUNTER 2017-11-01 16:08 | Inpatient (IN) | payer MEDICARE, OTHER, MEDICAID ==
[2017-11-01] MEDS ORDERED: OLANZapine ORAL DISINTEGRATING TAB 5MG PO (21:45)
[2017-11-01] MEDS ORDERED: ACETAMINOPHEN TAB 650MG DOSE (2X325MG) PO (21:45)
[2017-11-01] MEDS ORDERED: MAALOX 30 ML SUSP *UDC PO (21:45)
[2017-11-01] MEDS ORDERED: MOM 30ML SUSPENSION UDC PO (21:45)
[2017-11-01 22:13] LABS: AMPHETAMINES LEVEL URINE NEGATIVE (NEGATIVE); BARBITURATES URINE NEGATIVE (NEGATIVE); BENZODIAZEPINES URINE NEGATIVE (NEGATIVE); CANNABINOIDS URINE NEGATIVE (NEGATIVE); COCAINE METABOLITE URINE NEGATIVE (NEGATIVE); METHADONE URINE NEGATIVE (NEGATIVE); OPIATES URINE NEGATIVE (NEGATIVE); PHENCYCLIDINE URINE NEGATIVE (NEGATIVE)
[2017-11-01 22:17] LABS: BASO # 0.1 10^3/uL (0.0-0.2); BASO % 0.7 % (0.0-1.0); EOS # 0.5 10^3/uL (0.0-0.50); EOS % 5.5 % (0.0-3.0); HEMATOCRIT 45.5 % (42.0-52.0); HEMOGLOBIN 15.5 g/dl (13.5-17.5); IMMATURE GRANULOCYTE % 0.2 % (0-3.0); LYMPH % 36.3 % (24.0-44.0); MEAN CORPUSCULAR HEMOGLOBIN 30.5 pg (27.0-33.0); MEAN CORPUSCULAR HGB CONC 34.1 g/dl (32.0-36.5); MEAN CORPUSCULAR VOLUME 89.4 fl (80.0-96.0); MONO # 0.9 10^3/uL (0.0-0.8); MONO % 10.5 % (0.0-5.0); NEUTROPHILS # 3.8 10^3/uL (1.8-7.7); NEUTROPHILS % 46.8 % (36.0-66.0); PLATELET COUNT, AUTOMATED 223 10^3/uL (150-450); RED BLOOD COUNT 5.09 10^6/uL (4.30-6.10); RED CELL DISTRIBUTION WIDTH 11.9 % (11.5-14.5); WHITE BLOOD COUNT 8.2 10^3/uL (4.0-10.0)
[2017-11-01 22:50] LABS: ALBUMIN 4.5 GM/DL (3.2-5.2); ALBUMIN/GLOBULIN RATIO 1.29 (1.00-1.93); ALKALINE PHOSPHATASE 118 U/L (45-117); ALT/SGPT 85 U/L (12-78); ANION GAP 6 MEQ/L (8-16); AST/SGOT 55 U/L (7-37); BILIRUBIN,DIRECT 0.2 MG/DL (0.0-0.2); BILIRUBIN,TOTAL 0.6 MG/DL (0.2-1.0); BLOOD UREA NITROGEN 15 MG/DL (7-18); CALCIUM LEVEL 9.7 MG/DL (8.5-10.1); CARBON DIOXIDE LEVEL 32 MEQ/L (21-32); CHLORIDE LEVEL 106 MEQ/L (98-107); ETHYL ALCOHOL (ETHANOL) < 0.003 % (0.000-0.010); GLUCOSE, FASTING 90 MG/DL (70-100); SALICYLATE LEVEL < 1.7 MG/DL (5.0-30.0); SODIUM LEVEL 144 MEQ/L (136-145)
[2017-11-01 22:53] LABS: ACETAMINOPHEN LEVEL < 2.0 UG/ML (10.0-30.0)
[2017-11-01] MEDS ORDERED: DIVALPROEX 500 MG TAB PO (23:15)
[2017-11-02] MEDS: PALIPERIDONE 6 MG ER TAB (INVEGA) PO ×2 (01:51→20:26)
[2017-11-02] MEDS: QUEtiapine FUMARATE 50 MG TAB PO (01:52)
[2017-11-02] MEDS: DIVALPROEX 500 MG TAB PO ×3 (01:52→20:26)
[2017-11-02] MEDS: BUDESONIDE 0.25 MG/2 ML INHALATION SUSPENSION INH ×2 (08:00→21:19)
[2017-11-02] MEDS: PALIPERIDONE 3 MG ER TAB (INVEGA) PO (08:51)
[2017-11-02] MEDS ORDERED: PALIPERIDONE 6 MG ER TAB (INVEGA) PO (09:00)
[2017-11-02] MEDS ORDERED: MIRALAX *UNIT DOSE* 17GM PACKET PO (09:30)
[2017-11-02] MEDS: guanFACINE 1 MG TAB PO ×2 (13:04→20:26)
[2017-11-02] MEDS: LACTOBACILLUS ACIDOPHILUS CAP (BACID) PO ×2 (13:28→20:26)
[2017-11-02] MEDS: CETIRIZINE (ZyrTEC) 10 MG TAB PO (20:26)
[2017-11-02] MEDS: OLANZapine ORAL DISINTEGRATING TAB 5MG PO (20:27)
[2017-11-02] MEDS: FLUTICASONE PROP 0.05% NASAL SPRAY 16 GM (FLONASE) (20:27)
[2017-11-03 07:59] LABS: ALBUMIN 4.8 GM/DL (3.2-5.2); ALKALINE PHOSPHATASE 128 U/L (45-117); ALT/SGPT 90 U/L (12-78); ANION GAP 11 MEQ/L (8-16); AST/SGOT 54 U/L (7-37); BILIRUBIN,TOTAL 1.2 MG/DL (0.2-1.0); BLOOD UREA NITROGEN 15 MG/DL (7-18); CALCIUM LEVEL 9.9 MG/DL (8.5-10.1); CARBON DIOXIDE LEVEL 25 MEQ/L (21-32); CHLORIDE LEVEL 106 MEQ/L (98-107); CREATININE FOR GFR 0.94 MG/DL (0.70-1.30); GLUCOSE, FASTING 85 MG/DL (70-100); POTASSIUM SERUM 4.2 MEQ/L (3.5-5.1); SODIUM LEVEL 142 MEQ/L (136-145); TOTAL PROTEIN 8.5 GM/DL (6.4-8.2)
[2017-11-03] MEDS: PALIPERIDONE 6 MG ER TAB (INVEGA) PO ×2 (10:00→20:57)
[2017-11-03] MEDS: guanFACINE 1 MG TAB PO ×2 (10:00→20:57)
[2017-11-03] MEDS: LACTOBACILLUS ACIDOPHILUS CAP (BACID) PO ×2 (10:00→20:57)
[2017-11-03] MEDS: DIVALPROEX 500 MG TAB PO ×2 (10:00→20:58)
[2017-11-03] MEDS: CETIRIZINE (ZyrTEC) 10 MG TAB PO (20:57)
[2017-11-03] MEDS: FLUTICASONE PROP 0.05% NASAL SPRAY 16 GM (FLONASE) (20:58)
[2017-11-03] MEDS: OLANZapine ORAL DISINTEGRATING TAB 5MG PO (20:58)
[2017-11-03] MEDS: BUDESONIDE 0.25 MG/2 ML INHALATION SUSPENSION INH (23:22)
[2017-11-04] MEDS: ALBUTEROL SULFATE 2.5 MG/0.5 ML INH NEB SOLN INH (08:25)
[2017-11-04] MEDS: BUDESONIDE 0.25 MG/2 ML INHALATION SUSPENSION INH (08:25)
[2017-11-04 08:49] LABS: AMORPHOUS SEDIMENT RFX SMALL (NEGATIVE); KETONE, URINE AUTO RFX TRACE mg/dL (NEGATIVE); LEUKOCYTE ESTERASE UR AUTO RFX NEGATIVE (NEGATIVE); MUCUS, URINE RFX LARGE (NEGATIVE); NITRITE, URINE AUTO RFX NEGATIVE (NEGATIVE); RBC, URINE AUTO RFX 7 /HPF (0-3); SPECIFIC GRAVITY UR AUTO RFX 1.024 (1.002-1.035); SQUAM EPITHELIAL CELL UR AURFX 0 /HPF (0-6)
[2017-11-04 08:51] LABS: WBC, URINE AUTO RFX 13 /HPF (0-3)
[2017-11-04] MEDS: DIVALPROEX 500 MG TAB PO ×2 (08:56→21:17)
[2017-11-04] MEDS: guanFACINE 1 MG TAB PO ×2 (08:57→21:16)
[2017-11-04] MEDS: LACTOBACILLUS ACIDOPHILUS CAP (BACID) PO ×2 (08:57→21:16)
[2017-11-04 09:15] LABS: HEMATOCRIT 46.7 % (42.0-52.0); HEMOGLOBIN 16.2 g/dl (13.5-17.5); MEAN CORPUSCULAR HEMOGLOBIN 30.5 pg (27.0-33.0); MEAN CORPUSCULAR HGB CONC 34.7 g/dl (32.0-36.5); MEAN CORPUSCULAR VOLUME 87.8 fl (80.0-96.0); PLATELET COUNT, AUTOMATED 199 10^3/uL (150-450); RED BLOOD COUNT 5.32 10^6/uL (4.30-6.10); RED CELL DISTRIBUTION WIDTH 12.2 % (11.5-14.5); WHITE BLOOD COUNT 5.3 10^3/uL (4.0-10.0)
[2017-11-04 09:25] LABS: ALBUMIN 4.5 GM/DL (3.2-5.2); ALBUMIN/GLOBULIN RATIO 1.29 (1.00-1.93); ALKALINE PHOSPHATASE 123 U/L (45-117); ALT/SGPT 85 U/L (12-78); AST/SGOT 52 U/L (7-37); BILIRUBIN,DIRECT 0.3 MG/DL (0.0-0.2); BILIRUBIN,TOTAL 1.2 MG/DL (0.2-1.0); VALPROIC ACID (DEPAKOTE) 83.2 UG/ML (50.0-100.0)
[2017-11-04 09:45] LABS: ALBUMIN 3.8 GM/DL (3.2-5.2); ALBUMIN/GLOBULIN RATIO 1.12 (1.00-1.93); ALKALINE PHOSPHATASE 100 U/L (45-117); ALT/SGPT 78 U/L (12-78); ANION GAP 8 MEQ/L (8-16); AST/SGOT 46 U/L (7-37); BILIRUBIN,TOTAL 0.8 MG/DL (0.2-1.0); BLOOD UREA NITROGEN 11 MG/DL (7-18); CALCIUM LEVEL 9.1 MG/DL (8.5-10.1); CARBON DIOXIDE LEVEL 28 MEQ/L (21-32); CHLORIDE LEVEL 109 MEQ/L (98-107); GLUCOSE, FASTING 117 MG/DL (70-100); POTASSIUM SERUM 3.8 MEQ/L (3.5-5.1); SODIUM LEVEL 145 MEQ/L (136-145); TOTAL PROTEIN 7.2 GM/DL (6.4-8.2)
[2017-11-04] MEDS: METOPROLOL TART 12.5 MG PER 1/2 TAB PO (09:49)
[2017-11-04] MEDS ORDERED: ISOVUE-370 76% 100ML VIAL (Q9967) As Ordered (12:18)
[2017-11-04 13:03] LABS: CPK CREATINE PHOSPHOKINASE 77 U/L (39-308); FREE THYROXINE INDEX 4.8 % (1.4-3.8); T UPTAKE 38 % (33-40); THYROXINE (T4) 12.5 UG/DL (6.0-11.6); TROPONIN I < 0.02 NG/ML (< 0.10)
[2017-11-04 13:08] LABS: CK-MB VALUE MASS 2.3 NG/ML (<3.6); MB/CK RELATIVE INDEX 2.98 (< OR =4); THYROID STIMULATING HORMONE 0.813 uIU/ML (0.463-3.98)
[2017-11-04 17:27] LABS: CPK CREATINE PHOSPHOKINASE 79 U/L (39-308); TROPONIN I < 0.02 NG/ML (< 0.10)
[2017-11-04 17:28] LABS: CK-MB VALUE MASS 2.4 NG/ML (<3.6); MB/CK RELATIVE INDEX 3.03 (< OR =4)
[2017-11-04] MEDS: FLUTICASONE PROP 0.05% NASAL SPRAY 16 GM (FLONASE) (21:16)
[2017-11-04] MEDS: PALIPERIDONE 3 MG ER TAB (INVEGA) PO (21:16)
[2017-11-04] MEDS: OLANZapine ORAL DISINTEGRATING TAB 5MG PO (21:17)
[2017-11-04] MEDS: CETIRIZINE (ZyrTEC) 10 MG TAB PO (21:17)
[2017-11-05 01:32] LABS: CPK CREATINE PHOSPHOKINASE 63 U/L (39-308); TROPONIN I < 0.02 NG/ML (< 0.10)
[2017-11-05 01:34] LABS: MB/CK RELATIVE INDEX 3.17 (< OR =4)
[2017-11-05] MEDS: DIVALPROEX 500 MG TAB PO ×2 (08:32→20:03)
[2017-11-05] MEDS: PALIPERIDONE 3 MG ER TAB (INVEGA) PO ×2 (08:32→20:03)
[2017-11-05] MEDS: LACTOBACILLUS ACIDOPHILUS CAP (BACID) PO ×2 (08:32→20:02)
[2017-11-05] MEDS: guanFACINE 1 MG TAB PO ×2 (08:32→20:02)
[2017-11-05] MEDS: BUDESONIDE 0.25 MG/2 ML INHALATION SUSPENSION INH (09:32)
[2017-11-05] MEDS: CIPROFLOXACIN 500 MG TAB PO (17:27)
[2017-11-05 18:00] LABS: ALBUMIN/GLOBULIN RATIO 1.18 (1.00-1.93); ALKALINE PHOSPHATASE 106 U/L (45-117); ALT/SGPT 86 U/L (12-78); ANION GAP 6 MEQ/L (8-16); AST/SGOT 52 U/L (7-37); BILIRUBIN,TOTAL 0.7 MG/DL (0.2-1.0); BLOOD UREA NITROGEN 12 MG/DL (7-18); CALCIUM LEVEL 9.2 MG/DL (8.5-10.1); CARBON DIOXIDE LEVEL 29 MEQ/L (21-32); CHLORIDE LEVEL 108 MEQ/L (98-107); CREATININE FOR GFR 0.74 MG/DL (0.70-1.30); GLUCOSE, FASTING 73 MG/DL (70-100); POTASSIUM SERUM 3.8 MEQ/L (3.5-5.1); SODIUM LEVEL 143 MEQ/L (136-145); TOTAL PROTEIN 7.4 GM/DL (6.4-8.2)
[2017-11-05] MEDS: FLUTICASONE PROP 0.05% NASAL SPRAY 16 GM (FLONASE) (20:02)
[2017-11-05] MEDS: OLANZapine ORAL DISINTEGRATING TAB 5MG PO (20:03)
[2017-11-05] MEDS: CETIRIZINE (ZyrTEC) 10 MG TAB PO (20:03)
[2017-11-06] MEDS: PALIPERIDONE 3 MG ER TAB (INVEGA) PO ×2 (08:27→20:11)
[2017-11-06] MEDS: CIPROFLOXACIN 500 MG TAB PO ×2 (08:27→17:58)
[2017-11-06] MEDS: LACTOBACILLUS ACIDOPHILUS CAP (BACID) PO ×2 (08:27→20:11)
[2017-11-06] MEDS: DIVALPROEX 500 MG TAB PO (08:27)
[2017-11-06] MEDS: guanFACINE 1 MG TAB PO ×2 (08:31→20:11)
[2017-11-06] MEDS: BUDESONIDE 0.25 MG/2 ML INHALATION SUSPENSION INH ×2 (08:49→20:50)
[2017-11-06 12:55] LABS: ALBUMIN 3.6 GM/DL (3.2-5.2); ALBUMIN/GLOBULIN RATIO 1.24 (1.00-1.93); ALKALINE PHOSPHATASE 94 U/L (45-117); ALT/SGPT 72 U/L (12-78); ANION GAP 5 MEQ/L (8-16); AST/SGOT 43 U/L (7-37); BILIRUBIN,TOTAL 0.7 MG/DL (0.2-1.0); BLOOD UREA NITROGEN 14 MG/DL (7-18); CALCIUM LEVEL 8.7 MG/DL (8.5-10.1); CARBON DIOXIDE LEVEL 28 MEQ/L (21-32); CHLORIDE LEVEL 109 MEQ/L (98-107); CREATININE FOR GFR 0.81 MG/DL (0.70-1.30); GLUCOSE, FASTING 82 MG/DL (70-100); POTASSIUM SERUM 4.2 MEQ/L (3.5-5.1); SODIUM LEVEL 142 MEQ/L (136-145); TOTAL PROTEIN 6.5 GM/DL (6.4-8.2)
[2017-11-06] MEDS: FLUTICASONE PROP 0.05% NASAL SPRAY 16 GM (FLONASE) (20:11)
[2017-11-06] MEDS: OLANZapine ORAL DISINTEGRATING TAB 5MG PO (20:12)
[2017-11-06] MEDS: CETIRIZINE (ZyrTEC) 10 MG TAB PO (20:12)
[2017-11-06] MEDS: DIVALPROEX 250MG *ER* TAB PO (20:12)
[2017-11-07] MEDS: CIPROFLOXACIN 500 MG TAB PO ×2 (05:55→17:54)
[2017-11-07] MEDS: LACTOBACILLUS ACIDOPHILUS CAP (BACID) PO ×2 (08:31→20:04)
[2017-11-07] MEDS: DIVALPROEX 250MG *ER* TAB PO ×2 (08:31→20:04)
[2017-11-07] MEDS: guanFACINE 1 MG TAB PO ×2 (08:31→20:05)
[2017-11-07] MEDS: PALIPERIDONE 3 MG ER TAB (INVEGA) PO ×2 (08:31→20:04)
[2017-11-07] MEDS: BUDESONIDE 0.25 MG/2 ML INHALATION SUSPENSION INH (08:46)
[2017-11-07] MEDS: OLANZapine ORAL DISINTEGRATING TAB 5MG PO ×2 (09:32→20:05)
[2017-11-07] MEDS: CETIRIZINE (ZyrTEC) 10 MG TAB PO (20:04)
[2017-11-07] MEDS: FLUTICASONE PROP 0.05% NASAL SPRAY 16 GM (FLONASE) (20:05)
[2017-11-08] MEDS: CIPROFLOXACIN 500 MG TAB PO ×2 (05:56→18:03)
[2017-11-08] MEDS: LACTOBACILLUS ACIDOPHILUS CAP (BACID) PO ×2 (09:12→20:15)
[2017-11-08] MEDS: PALIPERIDONE 3 MG ER TAB (INVEGA) PO ×2 (09:12→20:22)
[2017-11-08] MEDS: DIVALPROEX 250MG *ER* TAB PO ×2 (09:13→20:15)
[2017-11-08] MEDS: guanFACINE 1 MG TAB PO ×2 (09:13→20:23)
[2017-11-08] MEDS: BUDESONIDE 0.25 MG/2 ML INHALATION SUSPENSION INH ×2 (09:30→20:06)
[2017-11-08] MEDS: OLANZapine ORAL DISINTEGRATING TAB 5MG PO ×2 (10:23→20:16)
[2017-11-08] MEDS: PROPRANOLOL 10 MG TAB PO ×3 (11:20→20:22)
[2017-11-08 12:26] LABS: ALBUMIN 3.6 GM/DL (3.2-5.2); ALBUMIN/GLOBULIN RATIO 1.24 (1.00-1.93); ALKALINE PHOSPHATASE 92 U/L (45-117); ALT/SGPT 76 U/L (12-78); AST/SGOT 51 U/L (7-37); BILIRUBIN,DIRECT 0.1 MG/DL (0.0-0.2); BILIRUBIN,TOTAL 0.4 MG/DL (0.2-1.0); TOTAL PROTEIN 6.5 GM/DL (6.4-8.2)
[2017-11-08] MEDS: CETIRIZINE (ZyrTEC) 10 MG TAB PO (20:15)
[2017-11-08] MEDS: FLUTICASONE PROP 0.05% NASAL SPRAY 16 GM (FLONASE) (20:17)
[2017-11-09] MEDS: CIPROFLOXACIN 500 MG TAB PO ×2 (06:19→18:00)
[2017-11-09] MEDS: ALBUTEROL SULFATE 2.5 MG/0.5 ML INH NEB SOLN INH (08:05)
[2017-11-09] MEDS: BUDESONIDE 0.25 MG/2 ML INHALATION SUSPENSION INH (08:05)
[2017-11-09] MEDS: PROPRANOLOL 10 MG TAB PO ×3 (08:44→21:33)
[2017-11-09] MEDS: LACTOBACILLUS ACIDOPHILUS CAP (BACID) PO ×2 (08:44→21:34)
[2017-11-09] MEDS: PALIPERIDONE 3 MG ER TAB (INVEGA) PO ×2 (08:44→21:34)
[2017-11-09] MEDS: DIVALPROEX 250MG *ER* TAB PO ×2 (08:44→21:33)
[2017-11-09] MEDS: guanFACINE 1 MG TAB PO ×2 (08:44→21:34)
[2017-11-09] MEDS ORDERED: BENZTROPINE 0.5 MG TAB PO ×2 (10:15→21:45)
[2017-11-09] MEDS ORDERED: BENZTROPINE 1 MG TAB As Ordered (17:10)
[2017-11-09] MEDS: FLUTICASONE PROP 0.05% NASAL SPRAY 16 GM (FLONASE) (21:32)
[2017-11-09] MEDS: OLANZapine ORAL DISINTEGRATING TAB 5MG PO (21:33)
[2017-11-09] MEDS: CETIRIZINE (ZyrTEC) 10 MG TAB PO (21:34)
[2017-11-09] MEDS ORDERED: BENZTROPINE 1 MG TAB PO ×2 (22:00)
[2017-11-10] MEDS: CIPROFLOXACIN 500 MG TAB PO (06:56)
[2017-11-10] MEDS: LACTOBACILLUS ACIDOPHILUS CAP (BACID) PO (09:14)
[2017-11-10] MEDS: PALIPERIDONE 3 MG ER TAB (INVEGA) PO (09:14)
[2017-11-10] MEDS: DIVALPROEX 250MG *ER* TAB PO (09:15)
[2017-11-10] MEDS: PROPRANOLOL 10 MG TAB PO (09:16)
[2017-11-10] MEDS: guanFACINE 1 MG TAB PO (09:16)
[2017-11-10] MEDS: ALBUTEROL SULFATE 2.5 MG/0.5 ML INH NEB SOLN INH (09:35)
[2017-11-10] MEDS: BUDESONIDE 0.25 MG/2 ML INHALATION SUSPENSION INH (09:35)
== END 2017-11-10 12:05 | disposition home or self-care (01) | DRG 884 ==
LOC: M ED 16:08 → M ED INP 20:32 → M PSY 23:00
DX: F84.0 Autistic disorder (principal); P35.3 Congenital viral hepatitis; Z79.899 Other long term (current) drug therapy; Z88.1 Allergy status to other antibiotic agents; K59.09 Other constipation; J45.909 Unspecified asthma, uncomplicated; R00.0 Tachycardia, unspecified

== ENCOUNTER 2017-11-21 17:46 | Emergency (ER) | payer MEDICARE, OTHER, MEDICAID | END 2017-11-21 20:07 | disposition home or self-care (01) | LOC: M ED 17:46 | DX: R45.6 Violent behavior (principal); J45.909 Unspecified asthma, uncomplicated; F84.0 Autistic disorder; K73.9 Chronic hepatitis, unspecified; Z79.899 Other long term (current) drug therapy; Z88.1 Allergy status to other antibiotic agents | CPT/HCPCS: 99282; G0463 ==

== ENCOUNTER → 2018-01-04 | Outpatient (REF) | payer MEDICARE, OTHER, MEDICAID ==
[2018-01-04 18:42] LABS: ESTIMATED AVERAGE GLUCOSE 100 MG/DL (60-110); HEMOGLOBIN A1c 5.1 %
[2018-01-04 18:45] LABS: ALBUMIN 4.1 GM/DL (3.2-5.2); ALBUMIN/GLOBULIN RATIO 1.05 (1.00-1.93); ALKALINE PHOSPHATASE 104 U/L (45-117); ALT/SGPT 82 U/L (12-78); ANION GAP 6 MEQ/L (8-16); AST/SGOT 48 U/L (7-37); BILIRUBIN,TOTAL 0.5 MG/DL (0.2-1.0); BLOOD UREA NITROGEN 21 MG/DL (7-18); CALCIUM LEVEL 8.8 MG/DL (8.5-10.1); CARBON DIOXIDE LEVEL 33 MEQ/L (21-32); CHLORIDE LEVEL 103 MEQ/L (98-107); CHOLESTEROL LEVEL 166 MG/DL (<200); CHOLESTEROL RISK RATIO 3.458 (<5); CREATININE FOR GFR 0.74 MG/DL (0.70-1.30); GLUCOSE, FASTING 46 MG/DL (70-100); HDL CHOLESTEROL 48 MG/DL (>40); LDL CHOLESTEROL 87.4 MG/DL (<100); NON-HDL-C 118 MG/DL; SODIUM LEVEL 142 MEQ/L (136-145); TRIGLYCERIDES LEVEL 153 MG/DL (<150)
[2018-01-04 18:49] LABS: BASO # 0.1 10^3/uL (0.0-0.2); BASO % 0.8 % (0.0-1.0); EOS # 0.6 10^3/uL (0.0-0.50); EOS % 8.2 % (0.0-3.0); HEMATOCRIT 49.5 % (42.0-52.0); HEMOGLOBIN 16.9 g/dl (13.5-17.5); IMMATURE GRANULOCYTE % 0.1 % (0-3.0); LYMPH # 2.9 10^3/uL (1.5-6.5); LYMPH % 38.5 % (24.0-44.0); MEAN CORPUSCULAR HEMOGLOBIN 30.5 pg (27.0-33.0); MEAN CORPUSCULAR HGB CONC 34.1 g/dl (32.0-36.5); MEAN CORPUSCULAR VOLUME 89.4 fl (80.0-96.0); MONO # 0.8 10^3/uL (0.0-0.8); MONO % 11.3 % (0.0-5.0); NEUTROPHILS % 41.1 % (36.0-66.0); PLATELET COUNT, AUTOMATED 234 10^3/uL (150-450); RED BLOOD COUNT 5.54 10^6/uL (4.30-6.10); RED CELL DISTRIBUTION WIDTH 11.7 % (11.5-14.5); WHITE BLOOD COUNT 7.4 10^3/uL (4.0-10.0)
== END ==
LOC: M SFHCPLAZ 14:51
DX: F84.0 Autistic disorder (principal); Z13.1 Encounter for screening for diabetes mellitus; Z13.220 Encounter for screening for lipoid disorders; K59.00 Constipation, unspecified; K12.30 Oral mucositis (ulcerative), unspecified; B18.1 Chronic viral hepatitis B without delta-agent; Z79.899 Other long term (current) drug therapy
CPT/HCPCS: 80053

== ENCOUNTER → 2018-06-26 | Outpatient (REF) | payer MEDICARE, OTHER, MEDICAID ==
[~2018-06-26] MED LIST changes: +ABIL1TAB12 PO; +BACITAB PO; +BENZ-52 PO; +BUDE0.254 INH; +CIPR-249 PO; -CLON0.5T; -CLON0.5T PO; +CLON0.5T8; +CLON0.5T8 PO; +DEPA250T2 PO; -GABA-282; -GABA-282 PO; +GABA-843; +GABA-843 PO; +GABA-845 PO; -GABA600T; -GABA600T PO; +GABA600T4; +GABA600T4 PO; +LINZ72CA PO; +MIRA3350 PO; +OLAN5TAB PO; +PALI1TAB2 PO; +PROBCAP4 PO; +PROP10TAB PO; +VITA500046 PO
[2018-06-26 12:41] LABS: BLOOD UREA NITROGEN 18 MG/DL (7-18); CALCIUM LEVEL 9.9 MG/DL (8.5-10.1); CARBON DIOXIDE LEVEL 31 MEQ/L (21-32); CHLORIDE LEVEL 101 MEQ/L (98-107); GLOMERULAR FILTRATION RATE > 60.0 (>60); GLUCOSE, FASTING 86 MG/DL (70-100); POTASSIUM SERUM 4.8 MEQ/L (3.5-5.1); SODIUM LEVEL 140 MEQ/L (136-145)
[2018-06-26 13:40] LABS: HEMOGLOBIN A1c 5.1 %
== END ==
LOC: M SFHCPLAZ 09:13
PROVIDERS: ATTEND Family Medicine
DX: R35.0 Frequency of micturition (principal)
CPT/HCPCS: 36415; 80048; 83036; G0463

== ENCOUNTER → 2018-07-25 | Outpatient (CLI) | payer MEDICARE, OTHER, MEDICAID | LOC: M WUC 08:46 | PROVIDERS: ATTEND Nurse Practitioner Psychiatric/Mental Health | DX: Z51.81 Encounter for therapeutic drug level monitoring (principal); Z79.899 Other long term (current) drug therapy ==

== ENCOUNTER → 2019-01-08 | Outpatient (REF) | payer MEDICARE, OTHER, MEDICAID ==
[~2019-01-08] MED LIST changes: +PROP10TA55 PO; -PROP10TAB PO
[2019-01-08 15:49] LABS: ALBUMIN 4.3 GM/DL (3.2-5.2); ALT/SGPT 103 U/L (12-78); BILIRUBIN,TOTAL 0.5 MG/DL (0.2-1.0); BLOOD UREA NITROGEN 15 MG/DL (7-18); CARBON DIOXIDE LEVEL 30 MEQ/L (21-32); CHLORIDE LEVEL 103 MEQ/L (98-107); CREATININE FOR GFR 0.75 MG/DL (0.70-1.30); GLOMERULAR FILTRATION RATE > 60.0 (>60); GLUCOSE, FASTING 71 MG/DL (70-100); POTASSIUM SERUM 4.1 MEQ/L (3.5-5.1); SODIUM LEVEL 140 MEQ/L (136-145); TOTAL PROTEIN 7.6 GM/DL (6.4-8.2)
[2019-01-11 14:08] LABS: HBV 30 IU/mL (.); log10 HBV IU/mL 1.477 (.)
== END ==
LOC: M SFHCPLAZ 10:38
PROVIDERS: ATTEND Family Medicine
DX: B18.1 Chronic viral hepatitis B without delta-agent (principal)
CPT/HCPCS: 80053; 82397; 83520; 83883; 87517; G0463

== ENCOUNTER → 2019-02-06 | Outpatient (CLI) | payer MEDICARE, OTHER, MEDICAID ==
[2019-02-06 20:21] LABS: BASO # 0.1 10^3/uL (0.0-0.2); BASO % 0.7 % (0.0-1.0); EOS # 0.3 10^3/uL (0.0-0.50); EOS % 3.6 % (0.0-3.0); HEMATOCRIT 46.7 % (42.0-52.0); HEMOGLOBIN 15.8 g/dl (13.5-17.5); LYMPH # 2.5 10^3/uL (1.5-6.5); LYMPH % 36.7 % (24.0-44.0); MEAN CORPUSCULAR HEMOGLOBIN 31.3 pg (27.0-33.0); MEAN CORPUSCULAR HGB CONC 33.8 g/dl (32.0-36.5); MEAN CORPUSCULAR VOLUME 92.5 fl (80.0-96.0); MONO # 0.8 10^3/uL (0.0-0.8); MONO % 12.1 % (0.0-5.0); NEUTROPHILS # 3.2 10^3/uL (1.8-7.7); NEUTROPHILS % 46.8 % (36.0-66.0); PLATELET COUNT, AUTOMATED 202 10^3/uL (150-450); RED BLOOD COUNT 5.05 10^6/uL (4.30-6.10); WHITE BLOOD COUNT 6.9 10^3/uL (4.0-10.0)
[2019-02-06 20:22] LABS: ALBUMIN 4.2 GM/DL (3.2-5.2); BILIRUBIN,DIRECT 0.1 MG/DL (0.0-0.2); BILIRUBIN,TOTAL 0.5 MG/DL (0.2-1.0); TOTAL PROTEIN 7.4 GM/DL (6.4-8.2); VALPROIC ACID (DEPAKOTE) 64.7 UG/ML (50.0-100.0)
[2019-02-09 00:06] LABS: HEPATITIS BE ANTIBODY Positive (Negative); HEPATITIS BE ANTIGEN Positive (Negative)
== END ==
LOC: M WUC 15:35
PROVIDERS: ATTEND Internal Medicine Infectious Disease
DX: B18.1 Chronic viral hepatitis B without delta-agent (principal)
CPT/HCPCS: 36415; 80076; 80164; 82105; 85025; 86707; 87350; G0463

== ENCOUNTER → 2019-02-09 | Outpatient (CLI) | payer MEDICARE, OTHER, MEDICAID ==
--- NOTE | 2019-02-09 08:34 | REP ---
Abdominal right upper quadrant ultrasound for chronic hepatitis B: Comparison is 05/16/2017. There is a negative Magaña's sign to transducer pressure. There is no cholelithiasis, gallbladder wall thickening or pericholecystic fluid. There is no intrahepatic or extrahepatic biliary duct dilatation. The common biliary duct measures 3.3 ml in diameter. The hepatic parenchyma is homogeneous. The small echogenic focus that identified in the right lobe on the prior study cannot be identified on the study today. However, bowel gas obscures visualization of some areas of the liver. The pancreas is obscured by bowel gas. The right kidney is in the low normal size range measuring 9.5 x 4.0 x 3.7 cm. There is no right renal hydronephrosis or calculus. There is no right renal solid or cystic mass. There is no right upper quadrant ascites. The examination is limited because of bowel gas and patient mental status, unable to breath hold. Impression: The small echogenic focus in the right lobe of the liver identified previously cannot be identified today. Study today is limited because of bowel gas and patient mental status, unable to breath hold. The pancreas is obscured. Otherwise, essentially negative abdominal right upper quadrant ultrasound. Electronically Signed by Guy Enriquez MD 02/09/2019 08:25 A
== END ==
LOC: M RAD 06:35
PROVIDERS: ATTEND Internal Medicine Infectious Disease
DX: B18.1 Chronic viral hepatitis B without delta-agent (principal)

== ENCOUNTER → 2019-05-16 | Outpatient (CLI) | payer MEDICARE, OTHER, MEDICAID ==
[~2019-05-16] MED LIST changes: +CLON0.5T2; +CLON0.5T2 PO; -CLON0.5T8; -CLON0.5T8 PO
[2019-05-16 13:04] LABS: ALBUMIN 4.1 GM/DL (3.2-5.2); ALT/SGPT 93 U/L (12-78); BILIRUBIN,DIRECT 0.2 MG/DL (0.0-0.2); BILIRUBIN,TOTAL 0.6 MG/DL (0.2-1.0); BLOOD UREA NITROGEN 13 MG/DL (7-18); CREATININE FOR GFR 0.84 MG/DL (0.70-1.30); GLOMERULAR FILTRATION RATE > 60.0 (>60); PHOSPHORUS LEVEL 3.2 MG/DL (2.5-4.9); TOTAL PROTEIN 7.6 GM/DL (6.4-8.2)
== END ==
LOC: M LAB 09:39
PROVIDERS: ATTEND Internal Medicine Gastroenterology
DX: B18.0 Chronic viral hepatitis B with delta-agent (principal)

== ENCOUNTER → 2019-05-17 | Outpatient (CLI) | payer MEDICARE, OTHER, MEDICAID ==
[~2019-05-17] MED LIST changes: +ISOVUE-370 76% 100ML VIAL (Q9967) As Ordered ONE
--- NOTE | 2019-05-17 13:24 | REP ---
Clinical: Hepatitis. Technique: Axial precontrast, arterial phase, portal phase, and delayed phase images of the abdomen using 100 ml Isovue 370 intravenous contrast material with coronal and sagittal re-formations. Findings: The liver is normal throughout the examination and without focal hepatic lesion or abnormality appreciated. Spleen, pancreas, gallbladder, bilateral adrenal glands and kidneys are normal. Visualized portions of the enteric system demonstrates considerable fecal stasis and diffusely distended air / fluid filled loops of small bowel which warrant correlation. No ascites. No free air. No adenopathy. Abdominal aorta appears normal. Musculoskeletal structures are intact. Lung bases are clear. Impression: 1. Normal appearance to the liver. 2. Significant fecal stasis and distended loops of small bowel are nonspecific and incompletely evaluated. Clinical correlation is recommended. Electronically Signed by Dewayne Urban MD 05/17/2019 01:16 P
== END ==
LOC: M RAD 12:05
PROVIDERS: ATTEND Internal Medicine Gastroenterology
DX: B18.0 Chronic viral hepatitis B with delta-agent (principal); K59.8 Other specified functional intestinal disorders
CPT/HCPCS: 74170; Q9967

== ENCOUNTER → 2019-05-27 | Outpatient (REF) | payer MEDICARE, OTHER, MEDICAID ==
[~2019-05-27] MED LIST changes: -ISOVUE-370 76% 100ML VIAL (Q9967) As Ordered ONE
[2019-05-27 10:47] LABS: CREATININE, URINE 52.7 MG/DL; CREATININE,RANDOM URINE 52.7 MG/DL; MALB URINE SIEMENS < 5.0 MG/L; MAU/CREAT RATIO 9.4 MCG/MG (0.0-30.0); TOTAL PROTEIN,RANDOM URINE 7.4 MG/DL (0.0-12.0)
== END ==
LOC: M LAB REF 05-26 19:30
PROVIDERS: ATTEND Internal Medicine Gastroenterology
DX: B18.0 Chronic viral hepatitis B with delta-agent (principal)

== ENCOUNTER → 2019-07-02 | Outpatient (CLI) | payer MEDICARE, OTHER, MEDICAID ==
[2019-07-02 17:35] LABS: ALBUMIN 4.3 GM/DL (3.2-5.2); ALT/SGPT 90 U/L (12-78); BILIRUBIN,DIRECT 0.1 MG/DL (0.0-0.2); BILIRUBIN,TOTAL 0.5 MG/DL (0.2-1.0); BLOOD UREA NITROGEN 16 MG/DL (7-18); CALCIUM LEVEL 9.2 MG/DL (8.5-10.1); CARBON DIOXIDE LEVEL 31 MEQ/L (21-32); CHLORIDE LEVEL 104 MEQ/L (98-107); CREATININE FOR GFR 0.84 MG/DL (0.70-1.30); GLOMERULAR FILTRATION RATE > 60.0 (>60); GLUCOSE, FASTING 72 MG/DL (70-100); POTASSIUM SERUM 4.1 MEQ/L (3.5-5.1); SODIUM LEVEL 141 MEQ/L (136-145); TOTAL PROTEIN 7.6 GM/DL (6.4-8.2)
[2019-07-05 14:07] LABS: HBV <10 IU/mL (.)
== END ==
LOC: M WUC 12:24
PROVIDERS: ATTEND Internal Medicine Gastroenterology
DX: R94.5 Abnormal results of liver function studies (principal); B18.0 Chronic viral hepatitis B with delta-agent

== ENCOUNTER → 2019-09-11 | Outpatient (CLI) | payer MEDICARE, OTHER, MEDICAID ==
--- NOTE | 2019-09-11 10:28 | REP ---
RIGHT UPPER QUADRANT ULTRASOUND: Real-time sonographic evaluation of the right upper quadrant performed. Gallbladder demonstrates no evidence of intraluminal sludge or calculi, wall thickening or pericholecystic fluid. There is no intrahepatic or extrahepatic biliary dilatation, common bile duct measuring 3 mm. Study is limited due to bowel gas and inability to suspend respirations. No gross liver mass is seen. Left lobe is obscured by bowel gas. Pancreas could not be seen. Right kidney demonstrates no hydronephrosis with normal sized 9.7 cm in length. IMPRESSION: Limited exam due to bowel gas and inability to suspect respirations. No gross abnormalities detected. Electronically Signed by Guy Munoz MD 09/11/2019 10:32 A
== END ==
LOC: M RAD 09:30
PROVIDERS: ATTEND Internal Medicine Gastroenterology
DX: R94.5 Abnormal results of liver function studies (principal)

== ENCOUNTER → 2019-10-04 | Outpatient (CLI) | payer MEDICARE, OTHER, MEDICAID ==
[2019-10-04 10:51] LABS: BASO % 0.6 % (0.0-1.0); EOS # 0.2 10^3/uL (0.0-0.5); EOS % 3.4 % (0.0-3.0); HEMATOCRIT 42.5 % (42.0-52.0); HEMOGLOBIN 14.4 g/dl (13.5-17.5); LYMPH # 1.9 10^3/uL (1.5-5.0); LYMPH % 41.1 % (24.0-44.0); MEAN CORPUSCULAR HEMOGLOBIN 31.5 pg (27.0-33.0); MEAN CORPUSCULAR HGB CONC 33.9 g/dl (32.0-36.5); MONO # 0.6 10^3/uL (0.0-0.8); MONO % 12.7 % (0.0-5.0); NEUTROPHILS # 1.9 10^3/uL (1.5-8.5); NEUTROPHILS % 41.8 % (36.0-66.0); PLATELET COUNT, AUTOMATED 174 10^3/uL (150-450); RED BLOOD COUNT 4.57 10^6/uL (4.30-6.10); WHITE BLOOD COUNT 4.7 10^3/uL (4.0-10.0)
[2019-10-04 11:24] LABS: ALBUMIN 3.8 GM/DL (3.2-5.2); ALT/SGPT 62 U/L (12-78); BILIRUBIN,DIRECT 0.1 MG/DL (0.0-0.2); BILIRUBIN,TOTAL 0.4 MG/DL (0.2-1.0); BLOOD UREA NITROGEN 16 MG/DL (7-18); CALCIUM LEVEL 9.3 MG/DL (8.5-10.1); CARBON DIOXIDE LEVEL 32 MEQ/L (21-32); CHLORIDE LEVEL 103 MEQ/L (98-107); GLOMERULAR FILTRATION RATE > 60.0 (>60); GLUCOSE, FASTING 80 MG/DL (70-100); POTASSIUM SERUM 4.6 MEQ/L (3.5-5.1); SODIUM LEVEL 140 MEQ/L (136-145)
[2019-10-06 14:12] LABS: HBV <10 IU/mL (.)
== END ==
LOC: M LAB 09:45
PROVIDERS: ATTEND Internal Medicine Gastroenterology
DX: B18.0 Chronic viral hepatitis B with delta-agent (principal)

== ENCOUNTER → 2019-10-17 | Outpatient (CLI) | payer MEDICARE, OTHER, MEDICAID ==
--- NOTE | 2019-10-17 11:19 | REP ---
KUB ABDOMEN AND PELVIS: KUB film of the abdomen and pelvis. KUB film of the abdomen and pelvis performed and compared to a prior study of 04/19/2017. Moderate air and fecal material is seen throughout the colon. There are again multiple mildly dilated small bowel loops scattered throughout the abdomen. The findings are similar to the prior study. There are no abnormal calcifications in the abdomen or pelvis. The visualized osseous structures are unremarkable. IMPRESSION: Moderate fecal material and air scattered throughout the colon. Multiple mildly dilated air-filled small bowel loops diffusely. Findings are similar to the prior study of 04/19/2017. Electronically Signed by Guy Munoz MD 10/17/2019 12:35 P
== END ==
LOC: M RAD 10:35
PROVIDERS: ATTEND Nurse Practitioner Adult Health
DX: K59.09 Other constipation (principal)

== ENCOUNTER → 2019-12-13 | Outpatient (CLI) | payer MEDICARE, OTHER, MEDICAID ==
[~2019-12-13] MED LIST changes: +E-Z-GAS II EFFERVESCENT PACKET (SODIUM BICARB./CITRIC ACID/SIMETHICONE) As Ordered ONE; +E-Z-HD 98% w/w 340GM SUSP BTL As Ordered ONE; +E-Z-PAQUE 96% w/w SUSP 176GM BTL As Ordered ONE
--- NOTE | 2019-12-24 08:01 | REP ---
Upper GI Air Contrast with SBFT The procedure was performed by PRAVEEN Pulido, under the the direct supervision of Dr. Duong. The images were reviewed with Dr. Duong. The talent scout film shows no organomegaly or pathological masses. The intestinal gas pattern appears normal. Liquid barium and gas producing crystals were given in the erect position as well as liquid barium in the prone position in order to perform a double contrast upper GI examination. The oral and pharyngeal stages of deglutition were unremarkable. Esophageal transport is efficient and there is no esophagitis, stricture, or mucosal ring noted. There is no hiatal hernia. Gastroesophageal reflux the level of the michael. The stomach diego are normally outlined. The rugal folds are smooth and regular. There is no gastritis, neoplasm, or ulcer disease noted. The duodenal diego are normally outlined. The mucosal folds are smooth and regular. There is no duodenitis, peptic ulcer disease, or neoplasm noted. The visualized portion of the proximal small bowel appears normal in course and caliber. The barium column was followed through the small bowel to the level of the terminal ileum. Small bowel transit time was approximately 5 hours 35 minutes. During fluoroscopy gentle palpation shows all loops are freely mobile and pliable. There are no fixed or angulated loops. The small bowel mucosal pattern is normal in course and caliber. There is no transition to set suggest a partial small-bowel obstruction. Spot filming of the terminal ileum shows it to be unremarkable. Impression: 1. Gastroesophageal reflux to the level of the michael. 2. Delay in transit time from the small bowel to the colon. 0.3 minutes of fluoroscopy time was utilized for this procedure. Some fluoroscopic images are performed with last image hold technology. These images require no additional radiation. Reviewed by PRAVEEN Wilson 12/13/2019 05:17 P Electronically Signed by Clifford Duong MD 12/24/2019 07:51 A
== END ==
LOC: M RAD 08:32
PROVIDERS: ATTEND Internal Medicine Gastroenterology
DX: F50.82 Avoidant/restrictive food intake disorder (principal); K21.9 Gastro-esophageal reflux disease without esophagitis

== ENCOUNTER → 2019-12-18 | Outpatient (CLI) | payer MEDICARE, OTHER, MEDICAID ==
[~2019-12-18] MED LIST changes: -E-Z-GAS II EFFERVESCENT PACKET (SODIUM BICARB./CITRIC ACID/SIMETHICONE) As Ordered ONE; -E-Z-HD 98% w/w 340GM SUSP BTL As Ordered ONE; -E-Z-PAQUE 96% w/w SUSP 176GM BTL As Ordered ONE
[2019-12-18 13:12] LABS: BASO # 0.1 10^3/uL (0.0-0.2); BASO % 0.8 % (0.0-1.0); EOS # 0.2 10^3/uL (0.0-0.5); EOS % 3.5 % (0.0-3.0); HEMATOCRIT 43.9 % (42.0-52.0); HEMOGLOBIN 14.7 g/dl (13.5-17.5); LYMPH # 2.4 10^3/uL (1.5-5.0); LYMPH % 40.5 % (24.0-44.0); MEAN CORPUSCULAR HEMOGLOBIN 31.3 pg (27.0-33.0); MEAN CORPUSCULAR HGB CONC 33.5 g/dl (32.0-36.5); MEAN CORPUSCULAR VOLUME 93.4 fl (80.0-96.0); MONO # 0.6 10^3/uL (0.0-0.8); MONO % 10.6 % (0.0-5.0); NEUTROPHILS # 2.7 10^3/uL (1.5-8.5); NEUTROPHILS % 44.4 % (36.0-66.0); PLATELET COUNT, AUTOMATED 180 10^3/uL (150-450)
[2019-12-18 16:33] LABS: ALBUMIN 4.1 GM/DL (3.2-5.2); ALT/SGPT 70 U/L (12-78); BILIRUBIN,TOTAL 0.5 MG/DL (0.2-1.0); BLOOD UREA NITROGEN 19 MG/DL (7-18); CALCIUM LEVEL 9.6 MG/DL (8.5-10.1); CARBON DIOXIDE LEVEL 31 MEQ/L (21-32); CHLORIDE LEVEL 103 MEQ/L (98-107); CHOLESTEROL LEVEL 195 MG/DL (<200); CHOLESTEROL RISK RATIO 4.333 (<5); CREATININE FOR GFR 0.81 MG/DL (0.70-1.30); GLOMERULAR FILTRATION RATE > 60.0 (>60); GLUCOSE, FASTING 79 MG/DL (70-100); HDL CHOLESTEROL 45 MG/DL (>40); LDL CHOLESTEROL 129 MG/DL (<100); NON-HDL-C 150 MG/DL; POTASSIUM SERUM 4.1 MEQ/L (3.5-5.1); SODIUM LEVEL 138 MEQ/L (136-145); TOTAL PROTEIN 7.3 GM/DL (6.4-8.2); TRIGLYCERIDES LEVEL 104 MG/DL (<150); VALPROIC ACID (DEPAKOTE) 64.9 UG/ML (50.0-100.0)
[2019-12-18 16:38] LABS: PROLACTIN 17.4 NG/ML (2.1-17.7)
== END ==
LOC: M WUC 08:41
PROVIDERS: ATTEND Physician Assistant
DX: F84.0 Autistic disorder (principal); F70 Mild intellectual disabilities; Z79.899 Other long term (current) drug therapy

== ENCOUNTER → 2019-12-18 | Outpatient (CLI) | payer MEDICARE, OTHER, MEDICAID ==
[2019-12-18 13:11] LABS: BASO # 0.1 10^3/uL (0.0-0.2); EOS # 0.2 10^3/uL (0.0-0.5); EOS % 3.8 % (0.0-3.0); HEMATOCRIT 45.7 % (42.0-52.0); HEMOGLOBIN 15.4 g/dl (13.5-17.5); LYMPH # 2.6 10^3/uL (1.5-5.0); LYMPH % 41.7 % (24.0-44.0); MEAN CORPUSCULAR HEMOGLOBIN 31.6 pg (27.0-33.0); MEAN CORPUSCULAR HGB CONC 33.7 g/dl (32.0-36.5); MEAN CORPUSCULAR VOLUME 93.6 fl (80.0-96.0); MONO # 0.7 10^3/uL (0.0-0.8); MONO % 10.8 % (0.0-5.0); NEUTROPHILS # 2.6 10^3/uL (1.5-8.5); NEUTROPHILS % 42.5 % (36.0-66.0); PLATELET COUNT, AUTOMATED 177 10^3/uL (150-450); RED BLOOD COUNT 4.88 10^6/uL (4.30-6.10); WHITE BLOOD COUNT 6.1 10^3/uL (4.0-10.0)
[2019-12-18 13:14] LABS: AMORPHOUS SEDIMENT SMALL (NEGATIVE); APPEARANCE, URINE TURBID (CLEAR); BACTERIA, URINE AUTO NEGATIVE (NEGATIVE); BILIRUBIN, URINE AUTO NEGATIVE (NEGATIVE); BLOOD, URINE BLOOD NEGATIVE (NEGATIVE); COLOR, URINE YELLOW (YELLOW); GLUCOSE, URINE (UA) AUTO NEGATIVE (NEGATIVE); KETONE, URINE AUTO TRACE mg/dL (NEGATIVE); LEUKOCYTE ESTERASE, URINE AUTO NEGATIVE (NEGATIVE); MUCUS, URINE SMALL (NEGATIVE); NITRITE, URINE AUTO NEGATIVE (NEGATIVE); PROTEIN, URINE AUTO NEGATIVE (NEGATIVE); RBC, URINE AUTO 0 /HPF (0-3); SPECIFIC GRAVITY URINE AUTO 1.018 (1.002-1.035); SQUAMOUS EPITHELIAL CELL UR AU 0 /HPF (0-6); UROBILINOGEN, URINE AUTO 0.2 mg/dL (0.0-2.0); WBC, URINE AUTO 8 /HPF (0-3)
[2019-12-18 13:51] LABS: INR 1.13; PROTHROMBIN TIME 14.2 SECONDS (11.8-14.0)
[2019-12-18 13:52] LABS: PARTIAL THROMBOPLASTIN TIME 35.2 SECONDS (25.0-38.4)
[2019-12-18 16:45] LABS: ALBUMIN 3.9 GM/DL (3.2-5.2); ALT/SGPT 68 U/L (12-78); BILIRUBIN,TOTAL 0.5 MG/DL (0.2-1.0); BLOOD UREA NITROGEN 18 MG/DL (7-18); CALCIUM LEVEL 9.4 MG/DL (8.5-10.1); CARBON DIOXIDE LEVEL 31 MEQ/L (21-32); CHLORIDE LEVEL 104 MEQ/L (98-107); CHOLESTEROL LEVEL 169 MG/DL (<200); CHOLESTEROL RISK RATIO 3.755 (<5); CREATININE FOR GFR 0.86 MG/DL (0.70-1.30); FREE T4 1.28 NG/DL (0.76-1.46); GLOMERULAR FILTRATION RATE > 60.0 (>60); GLUCOSE, FASTING 76 MG/DL (70-100); HDL CHOLESTEROL 45 MG/DL (>40); IRON (FE) 106 UG/DL (65-175); LDL CHOLESTEROL 103 MG/DL (<100); NON-HDL-C 124 MG/DL; POTASSIUM SERUM 4.1 MEQ/L (3.5-5.1); SODIUM LEVEL 140 MEQ/L (136-145); TOTAL PROTEIN 7.2 GM/DL (6.4-8.2); TRIGLYCERIDES LEVEL 106 MG/DL (<150)
[2019-12-19 16:12] LABS: ALPHA 1 ANTITRYPSIN 116 mg/dL (95-164); ANTI DOUBLE STRAND-DNA AB <1 IU/mL (0-9); ANTINUCLEAR ANTIBODIES DIRECT Positive (Negative); RNP ANTIBODIES 3.5 AI (0.0-0.9); SJOGREN'S ANTI SS-A <0.2 AI (0.0-0.9); SJOGREN'S ANTI SS-B <0.2 AI (0.0-0.9); SMITH ANTIBODIES <0.2 AI (0.0-0.9)
== END ==
LOC: M WUC 08:35
PROVIDERS: ATTEND Family Medicine
DX: F84.0 Autistic disorder (principal); K59.00 Constipation, unspecified; R94.5 Abnormal results of liver function studies; F70 Mild intellectual disabilities; Z79.899 Other long term (current) drug therapy

== ENCOUNTER → 2020-03-18 | Outpatient (CLI) | payer MEDICARE, OTHER, MEDICAID ==
[2020-03-18 13:28] LABS: COMPLEMENT C3 90 MG/DL (90-180); COMPLEMENT C4 24 MG/DL (10-40)
[2020-03-21 17:12] LABS: ANTI CENTROMERE ANTIBODY <0.2 AI (0.0-0.9); ANTI DOUBLE STRAND-DNA AB <1 IU/mL (0-9); ANTI SCLERODERMA ANTIBODIES <0.2 AI (0.0-0.9); ANTI-HISTONE ANTIBODIES 4.4 Units (0.0-0.9); ANTINUCLEAR ANTIBODIES DIRECT Positive (Negative); BETA-2 GLYCOPROTEIN I ABY IGA <9 (0-25); BETA-2 GLYCOPROTEIN I ABY IGG <9 (0-20); BETA-2 GLYCOPROTEIN I ABY IGM <9 (0-32); CARDIOLIPIN IGA ANTIBODY <9 APL U/mL (0-11); CARDIOLIPIN IGG ANTIBODY <9 GPL U/mL (0-14); CARDIOLIPIN IGM ANTIBODY 11 MPL U/mL (0-12); COMPLEMENT TOTAL (CH50) > 60 U/mL (>41); SJOGREN'S ANTI SS-A <0.2 AI (0.0-0.9); SJOGREN'S ANTI SS-B <0.2 AI (0.0-0.9); SMITH ANTIBODIES <0.2 AI (0.0-0.9)
== END ==
LOC: M LAB 09:45
PROVIDERS: ATTEND Internal Medicine
DX: R76.8 Other specified abnormal immunological findings in serum (principal); R76.0 Raised antibody titer; B18.0 Chronic viral hepatitis B with delta-agent; R94.5 Abnormal results of liver function studies

== ENCOUNTER → 2020-03-18 | Outpatient (CLI) | payer MEDICARE, OTHER, MEDICAID ==
[2020-03-18 11:26] LABS: BASO % 0.6 % (0.0-1.0); EOS # 0.2 10^3/uL (0.0-0.5); EOS % 2.3 % (0.0-3.0); HEMATOCRIT 45.8 % (42.0-52.0); HEMOGLOBIN 15.2 g/dl (13.5-17.5); LYMPH # 2.6 10^3/uL (1.5-5.0); LYMPH % 40.7 % (24.0-44.0); MEAN CORPUSCULAR HEMOGLOBIN 30.6 pg (27.0-33.0); MEAN CORPUSCULAR HGB CONC 33.2 g/dl (32.0-36.5); MEAN CORPUSCULAR VOLUME 92.2 fl (80.0-96.0); MONO # 0.6 10^3/uL (0.0-0.8); MONO % 9.4 % (0.0-5.0); NEUTROPHILS % 46.8 % (36.0-66.0); PLATELET COUNT, AUTOMATED 172 10^3/uL (150-450); RED BLOOD COUNT 4.97 10^6/uL (4.30-6.10); WHITE BLOOD COUNT 6.4 10^3/uL (4.0-10.0)
[2020-03-18 11:51] LABS: ALBUMIN 4.1 GM/DL (3.2-5.2); ALT/SGPT 70 U/L (12-78); BILIRUBIN,DIRECT 0.1 MG/DL (0.0-0.2); BILIRUBIN,TOTAL 0.7 MG/DL (0.2-1.0); BLOOD UREA NITROGEN 18 MG/DL (7-18); CALCIUM LEVEL 9.7 MG/DL (8.5-10.1); CARBON DIOXIDE LEVEL 30 MEQ/L (21-32); CHLORIDE LEVEL 105 MEQ/L (98-107); CREATININE FOR GFR 0.91 MG/DL (0.70-1.30); GLOMERULAR FILTRATION RATE > 60.0 (>60); GLUCOSE, FASTING 80 MG/DL (70-100); POTASSIUM SERUM 4.6 MEQ/L (3.5-5.1); SODIUM LEVEL 139 MEQ/L (136-145); TOTAL PROTEIN 7.8 GM/DL (6.4-8.2)
[2020-03-18 13:01] LABS: HEPATITIS B SURFACE ANTIGEN POSITIVE (NEGATIVE)
[2020-03-20 17:09] LABS: HBV <10 IU/mL (.); HEPATITIS BE ANTIGEN Positive (Negative)
== END ==
LOC: M LAB 09:50
PROVIDERS: ATTEND Internal Medicine Gastroenterology
DX: B18.0 Chronic viral hepatitis B with delta-agent (principal); R94.5 Abnormal results of liver function studies

== ENCOUNTER → 2020-03-20 | Outpatient (CLI) | payer MEDICARE, OTHER, MEDICAID ==
--- NOTE | 2020-03-24 14:09 | REP ---
RIGHT UPPER QUADRANT SONOGRAPHY HISTORY: Chronic hepatitis B. Abnormal liver function studies. COMPARISON: CT study 05/17/2019. Sonography 02/09/2019. FINDINGS: There is considerable shadowing of the liver by bowel gas affecting the left lobe visualization. The left lobe of the liver is not seen. Coarse liver texture is observed. No focal liver mass lesion is observed. These findings are unchanged. A normal sized thin walled gallbladder is seen without evidence of stone or polyp. Common bile duct measures 0.5 cm in greatest diameter. The pancreas is obscured by abdominal gas as well. There is no evidence of ascites or right renal abnormality. The right kidney measures 10.1 x 4.3 x 3.4 cm. IMPRESSION: No hepatic mass lesion seen. Somewhat coarse liver texture again noted. Scan quality inhibited by bowel gas. Otherwise negative. MTDD
== END ==
LOC: M RAD 07:34
PROVIDERS: ATTEND Internal Medicine Gastroenterology
DX: R94.5 Abnormal results of liver function studies (principal); B18.0 Chronic viral hepatitis B with delta-agent

== ENCOUNTER → 2020-09-19 | Outpatient (CLI) | payer MEDICARE, OTHER, MEDICAID ==
[~2020-09-19] MED LIST changes: +GABA-282; +GABA-282 PO; -GABA-843; -GABA-843 PO; -PEG1POW PO; +POLY17PO18 PO; +RISP-7; +RISP-7 PO; +RISP-8; +RISP-8 PO; -RISP0.5T3; -RISP0.5T3 PO; -RISP1TAB3; -RISP1TAB3 PO
--- NOTE | 2020-09-19 09:12 | REP ---
INDICATION: CHRONIC VIRAL HEPATITIS B WITH DELTA-AGENT. COMPARISON: Right upper quadrant ultrasound dated 03/20/2020. TECHNIQUE: Multiple sonographic images of the abdominal right upper quadrant. FINDINGS: There is no cholelithiasis, gallbladder wall thickening or pericholecystic fluid. There is no intrahepatic or extrahepatic biliary duct duct dilatation. The common duct measures 4.6 mm in diameter. The hepatic parenchyma is diffusely coarsened compatible with diffuse hepatocellular disease. There are no focal hepatic masses or cysts. There is no right upper quadrant ascites. The pancreas is obscured by bowel gas. The right kidney measures 10.2 x 4.9 x 5.8 cm and is normal size. There is no right renal calculus, hydronephrosis, solid mass or cystic mass. The scan is technically negative occult having to be performed predominantly through intercostal acoustic windows. IMPRESSION: Diffusely coarsened hepatic echotexture, compatible with diffuse hepatocellular disease. There are no hepatic masses or cysts. No biliary duct dilatation. No ascites. The study is technically difficult. <Electronically signed by Guy Enriquez > 09/19/20 [id number]
== END ==
LOC: M RAD 08:34
PROVIDERS: ATTEND Internal Medicine Gastroenterology
DX: B18.0 Chronic viral hepatitis B with delta-agent (principal); R94.5 Abnormal results of liver function studies

== ENCOUNTER → 2020-09-28 | Outpatient (CLI) | payer MEDICARE, MEDICAID, OTHER ==
[2020-09-28 12:07] LABS: BASO # 0.1 10^3/uL (0.0-0.2); BASO % 0.9 % (0.0-1.0); EOS # 0.4 10^3/uL (0.0-0.5); EOS % 6.5 % (0.0-3.0); HEMOGLOBIN 15.1 g/dl (13.5-17.5); LYMPH # 2.1 10^3/uL (1.5-5.0); LYMPH % 37.3 % (24.0-44.0); MEAN CORPUSCULAR HGB CONC 32.8 g/dl (32.0-36.5); MEAN CORPUSCULAR VOLUME 91.5 fl (80.0-96.0); MONO # 0.7 10^3/uL (0.0-0.8); MONO % 12.7 % (2.0-8.0); NEUTROPHILS # 2.4 10^3/uL (1.5-8.5); NEUTROPHILS % 42.4 % (36.0-66.0); PLATELET COUNT, AUTOMATED 170 10^3/uL (150-450); RED BLOOD COUNT 5.03 10^6/uL (4.30-6.10); WHITE BLOOD COUNT 5.7 10^3/uL (4.0-10.0)
[2020-09-28 12:30] LABS: ALBUMIN 3.9 GM/DL (3.2-5.2); ALT/SGPT 75 U/L (12-78); BILIRUBIN,DIRECT 0.1 MG/DL (0.0-0.2); BILIRUBIN,TOTAL 0.4 MG/DL (0.2-1.0); BLOOD UREA NITROGEN 15 MG/DL (7-18); CALCIUM LEVEL 9.3 MG/DL (8.5-10.1); CARBON DIOXIDE LEVEL 33 MEQ/L (21-32); CHLORIDE LEVEL 104 MEQ/L (98-107); CREATININE FOR GFR 0.81 MG/DL (0.70-1.30); GLOMERULAR FILTRATION RATE > 60.0 (>60); GLUCOSE, FASTING 86 MG/DL (70-100); SODIUM LEVEL 141 MEQ/L (136-145); TOTAL PROTEIN 7.3 GM/DL (6.4-8.2)
== END ==
LOC: M LAB 11:18
PROVIDERS: ATTEND Internal Medicine Gastroenterology
DX: B18.0 Chronic viral hepatitis B with delta-agent (principal); R94.5 Abnormal results of liver function studies

== ENCOUNTER → 2020-12-02 | Outpatient (CLI) | payer MEDICARE, MEDICAID, OTHER ==
[~2020-12-02] MED LIST changes: +GABA-283 PO; -GABA-845 PO
[2020-12-02 09:45] LABS: BASO % 0.5 % (0.0-1.0); EOS # 0.2 10^3/uL (0.0-0.5); EOS % 3.6 % (0.0-3.0); HEMATOCRIT 44.8 % (42.0-52.0); LYMPH # 2.8 10^3/uL (1.5-5.0); LYMPH % 46.7 % (24.0-44.0); MEAN CORPUSCULAR HEMOGLOBIN 30.2 pg (27.0-33.0); MEAN CORPUSCULAR HGB CONC 33.5 g/dl (32.0-36.5); MEAN CORPUSCULAR VOLUME 90.3 fl (80.0-96.0); MONO # 0.6 10^3/uL (0.0-0.8); MONO % 10.7 % (2.0-8.0); NEUTROPHILS # 2.3 10^3/uL (1.5-8.5); NEUTROPHILS % 38.3 % (36.0-66.0); PLATELET COUNT, AUTOMATED 198 10^3/uL (150-450); RED BLOOD COUNT 4.96 10^6/uL (4.30-6.10); WHITE BLOOD COUNT 5.9 10^3/uL (4.0-10.0)
[2020-12-02 10:13] LABS: ALBUMIN 3.8 GM/DL (3.2-5.2); ALT/SGPT 68 U/L (12-78); BILIRUBIN,TOTAL 0.7 MG/DL (0.2-1.0); BLOOD UREA NITROGEN 17 MG/DL (7-18); CALCIUM LEVEL 9.6 MG/DL (8.5-10.1); CARBON DIOXIDE LEVEL 29 MEQ/L (21-32); CHLORIDE LEVEL 103 MEQ/L (98-107); CHOLESTEROL LEVEL 162 MG/DL (<200); CHOLESTEROL RISK RATIO 3.857 (<5); GLOMERULAR FILTRATION RATE > 60.0 (>60); GLUCOSE, FASTING 78 MG/DL (70-100); HDL CHOLESTEROL 42 MG/DL (>40); LDL CHOLESTEROL 100 MG/DL (<100); NON-HDL-C 120 MG/DL; POTASSIUM SERUM 4.4 MEQ/L (3.5-5.1); SODIUM LEVEL 138 MEQ/L (136-145); TOTAL PROTEIN 7.3 GM/DL (6.4-8.2); TRIGLYCERIDES LEVEL 100 MG/DL (<150); VALPROIC ACID (DEPAKOTE) 72.6 UG/ML (50.0-100.0)
[2020-12-02 11:51] LABS: PROLACTIN 23.7 NG/ML (2.1-17.7)
== END ==
LOC: M WUC 08:37
PROVIDERS: ATTEND Physician Assistant
DX: Z79.899 Other long term (current) drug therapy (principal)

== ENCOUNTER → 2021-09-08 | Outpatient (CLI) | payer MEDICARE, MEDICAID, OTHER ==
[~2021-09-08] MED LIST changes: -OLAN10TA2; +OLAN1TAB16 PO; +OLAN1TAB20; -OLAN5TAB PO
[2021-09-08 13:30] LABS: ALBUMIN 3.8 GM/DL (3.2-5.2); ALT/SGPT 81 U/L (12-78); BILIRUBIN,DIRECT 0.1 MG/DL (0.0-0.2); BILIRUBIN,TOTAL 0.9 MG/DL (0.2-1.0); BLOOD UREA NITROGEN 18 MG/DL (7-18); CREATININE FOR GFR 0.81 MG/DL (0.70-1.30); GLOMERULAR FILTRATION RATE > 60.0 (>60)
== END ==
LOC: M WUC 09:47
PROVIDERS: ATTEND Internal Medicine Gastroenterology
DX: B18.0 Chronic viral hepatitis B with delta-agent (principal)

== ENCOUNTER → 2021-09-29 | Outpatient (CLI) | payer MEDICARE, OTHER, MEDICAID | LOC: M RAD 07:50 | PROVIDERS: ATTEND Internal Medicine Gastroenterology | DX: B18.0 Chronic viral hepatitis B with delta-agent (principal) ==

== ENCOUNTER → 2022-04-09 | Outpatient (CLI) | payer MEDICARE, MEDICAID ==
[2022-04-09 09:36] LABS: BASO # 0.1 10^3/uL (0.0-0.2); BASO % 0.9 % (0.0-1.0); EOS # 0.1 10^3/uL (0.0-0.5); EOS % 2.4 % (0.0-3.0); HEMATOCRIT 47.8 % (42.0-52.0); HEMOGLOBIN 16.2 g/dl (13.5-17.5); LYMPH # 1.7 10^3/uL (1.5-5.0); LYMPH % 28.6 % (24.0-44.0); MEAN CORPUSCULAR HEMOGLOBIN 30.4 pg (27.0-33.0); MEAN CORPUSCULAR HGB CONC 33.9 g/dl (32.0-36.5); MEAN CORPUSCULAR VOLUME 89.7 fl (80.0-96.0); MONO # 1.2 10^3/uL (0.0-0.8); MONO % 20.3 % (2.0-8.0); NEUTROPHILS # 2.7 10^3/uL (1.5-8.5); NEUTROPHILS % 47.5 % (36.0-66.0); PLATELET COUNT, AUTOMATED 206 10^3/uL (150-450); RED BLOOD COUNT 5.33 10^6/uL (4.30-6.10); WHITE BLOOD COUNT 5.8 10^3/uL (4.0-10.0)
[2022-04-09 10:16] LABS: ALBUMIN 3.7 GM/DL (3.2-5.2); ALKALINE PHOSPHATASE 91 U/L (45-117); ALT/SGPT 56 U/L (12-78); AST/SGOT 37 U/L (7-37); BILIRUBIN,TOTAL 0.7 MG/DL (0.2-1.0); BLOOD UREA NITROGEN 13 MG/DL (7-18); CALCIUM LEVEL 8.8 MG/DL (8.5-10.1); CARBON DIOXIDE LEVEL 29 MEQ/L (21-32); CHLORIDE LEVEL 104 MEQ/L (98-107); CHOLESTEROL LEVEL 154 MG/DL (<200); CHOLESTEROL RISK RATIO 4.666 (<5); CREATININE FOR GFR 0.96 MG/DL (0.70-1.30); GLOMERULAR FILTRATION RATE > 60.0 (>60); GLUCOSE, FASTING 90 MG/DL (70-100); HDL CHOLESTEROL 33 MG/DL (>40); LDL CHOLESTEROL 103 MG/DL (<100); NON-HDL-C 121 MG/DL; SODIUM LEVEL 136 MEQ/L (136-145); TOTAL PROTEIN 7.2 GM/DL (6.4-8.2); TRIGLYCERIDES LEVEL 88 MG/DL (<150); VALPROIC ACID (DEPAKOTE) 47.4 UG/ML (50.0-100.0)
[2022-04-09 10:58] LABS: PROLACTIN 15.7 NG/ML (2.1-17.7)
== END ==
LOC: M LAB 08:20
PROVIDERS: ATTEND Physician Assistant
DX: R94.5 Abnormal results of liver function studies (principal); B18.0 Chronic viral hepatitis B with delta-agent; Z79.899 Other long term (current) drug therapy

== ENCOUNTER → 2022-04-09 | Outpatient (CLI) | payer MEDICARE, MEDICAID ==
[2022-04-09 10:11] LABS: ALBUMIN 3.7 GM/DL (3.2-5.2); BILIRUBIN,DIRECT 0.2 MG/DL (0.0-0.2); BILIRUBIN,TOTAL 0.7 MG/DL (0.2-1.0); TOTAL PROTEIN 7.3 GM/DL (6.4-8.2)
== END ==
LOC: M LAB 08:23
PROVIDERS: ATTEND Internal Medicine Gastroenterology
DX: R94.5 Abnormal results of liver function studies (principal); B18.0 Chronic viral hepatitis B with delta-agent

== ENCOUNTER → 2022-04-13 | Outpatient (CLI) | payer MEDICARE, MEDICAID | LOC: M RAD 06:53 | PROVIDERS: ATTEND Internal Medicine Gastroenterology | DX: R94.5 Abnormal results of liver function studies (principal); K59.00 Constipation, unspecified; R63.4 Abnormal weight loss ==

== ENCOUNTER → 2022-11-01 | Outpatient (CLI) | payer MEDICARE, MEDICAID ==
[~2022-11-01] MED LIST changes: -BENZ-52 PO; +BENZ1TAB5 PO
== END ==
LOC: M WHC 10-28 08:24
PROVIDERS: ATTEND Internal Medicine Gastroenterology
DX: B18.0 Chronic viral hepatitis B with delta-agent (principal)

== ENCOUNTER → 2022-11-30 | Outpatient (CLI) | payer MEDICARE, MEDICAID ==
[2022-11-30 10:01] LABS: BASO # 0.1 10^3/uL (0.0-0.2); BASO % 0.9 % (0.0-1.0); EOS # 0.4 10^3/uL (0.0-0.5); EOS % 6.6 % (0.0-3.0); HEMATOCRIT 47.1 % (42.0-52.0); HEMOGLOBIN 15.5 g/dl (13.5-17.5); LYMPH # 2.6 10^3/uL (1.5-5.0); LYMPH % 40.1 % (24.0-44.0); MEAN CORPUSCULAR HEMOGLOBIN 29.9 pg (27.0-33.0); MEAN CORPUSCULAR HGB CONC 32.9 g/dl (32.0-36.5); MEAN CORPUSCULAR VOLUME 90.8 fl (80.0-96.0); MONO # 0.7 10^3/uL (0.0-0.8); MONO % 11.1 % (2.0-8.0); NEUTROPHILS # 2.6 10^3/uL (1.5-8.5); PLATELET COUNT, AUTOMATED 193 10^3/uL (150-450); RED BLOOD COUNT 5.19 10^6/uL (4.30-6.10); WHITE BLOOD COUNT 6.4 10^3/uL (4.0-10.0)
[2022-11-30 10:37] LABS: IRON (FE) 88 UG/DL (65-175)
[2022-11-30 10:38] LABS: ALBUMIN 3.9 G/DL (3.2-5.2); ALKALINE PHOSPHATASE 87 U/L (46-116); ALT/SGPT 48 U/L (7.0-40); AST/SGOT 40 U/L (<34); BILIRUBIN,TOTAL 0.5 MG/DL (0.3-1.2); BLOOD UREA NITROGEN 17 MG/DL (9-23); CALCIUM LEVEL 8.9 MG/DL (8.5-10.1); CARBON DIOXIDE LEVEL 30 MMOL/L (20-31); CHLORIDE LEVEL 104 MMOL/L (98-107); CHOLESTEROL LEVEL 195 MG/DL (<200); CHOLESTEROL RISK RATIO 5.09 (<5); CREATININE FOR GFR 0.79 MG/DL (0.70-1.30); GLOMERULAR FILTRATION RATE > 60.0 (>60); GLUCOSE, FASTING 77 MG/DL (60-100); HDL CHOLESTEROL 38.3 MG/DL (>40); LDL CHOLESTEROL 122.7 MG/DL (<100); NON-HDL-C 156.7 MG/DL; POTASSIUM SERUM 4.3 MMOL/L (3.5-5.1); SODIUM LEVEL 140 MMOL/L (136-145); TOTAL PROTEIN 6.7 G/DL (5.7-8.2); TRIGLYCERIDES LEVEL 170 MG/DL (<150)
[2022-11-30 10:42] LABS: THYROID STIMULATING HORMONE 2.636 uIU/ML (0.55-4.78)
[2022-11-30 10:43] LABS: FREE T4 1.29 NG/DL (0.89-1.76)
[2022-12-01 18:36] LABS: APPEARANCE, URINE CLEAR (CLEAR); BACTERIA, URINE AUTO NEGATIVE (NEGATIVE); BILIRUBIN, URINE AUTO NEGATIVE (NEGATIVE); BLOOD, URINE BLOOD NEGATIVE (NEGATIVE); COLOR, URINE COLORLESS (YELLOW); GLUCOSE, URINE (UA) AUTO NEGATIVE (NEGATIVE); KETONE, URINE AUTO NEGATIVE (NEGATIVE); LEUKOCYTE ESTERASE, URINE AUTO NEGATIVE (NEGATIVE); NITRITE, URINE AUTO NEGATIVE (NEGATIVE); PROTEIN, URINE AUTO NEGATIVE (NEGATIVE); RBC, URINE AUTO 0 /HPF (0-3); SPECIFIC GRAVITY URINE AUTO 1.004 (1.002-1.035); SQUAMOUS EPITHELIAL CELL UR AU 0 /HPF (0-6); UROBILINOGEN, URINE AUTO 0.2 mg/dL (0.0-2.0); WBC, URINE AUTO 0 /HPF (0-3)
== END ==
LOC: M WUC 08:16
PROVIDERS: ATTEND Family Medicine
DX: Z00.00 Encounter for general adult medical examination without abnormal findings (principal); F84.0 Autistic disorder; R94.5 Abnormal results of liver function studies; Z79.899 Other long term (current) drug therapy

== ENCOUNTER → 2023-01-05 | Outpatient (CLI) | payer MEDICARE, MEDICAID | LOC: M RAD 08:17 | PROVIDERS: ATTEND Family Medicine | DX: R94.5 Abnormal results of liver function studies (principal); R93.2 Abnormal findings on diagnostic imaging of liver and biliary tract ==

== ENCOUNTER → 2023-05-25 | Outpatient (CLI) | payer MEDICARE, MEDICAID ==
[~2023-05-25] MED LIST changes: -GABA-283 PO; +GABA-284 PO; +RISP-105; +RISP-105 PO; -RISP-8; -RISP-8 PO
[2023-05-25 14:04] LABS: ALKALINE PHOSPHATASE 84 U/L (46-116); ALT/SGPT 57 U/L (7.0-40); AST/SGOT 46 U/L (<34); BILIRUBIN,DIRECT 0.1 MG/DL (<0.4); BILIRUBIN,TOTAL 0.6 MG/DL (0.3-1.2); TOTAL PROTEIN 7.3 G/DL (5.7-8.2)
[2023-05-27 02:07] LABS: CK 1 (BB) 0 % (0); CK 2 (MB) 0 % (0-3); CK 3 (MM) 100 % (97-100); CK MACRO I PERCENT 0 % (Not Observed); CK MACRO II PERCENT 0 % (Not Observed); CK TOTAL 72 U/L (49-439); HEPATITIS BE ANTIBODY Positive (Negative); HEPATITIS BE ANTIGEN Positive (Negative)
== END ==
LOC: M WUC 10:42
PROVIDERS: ATTEND Internal Medicine Gastroenterology
DX: B18.0 Chronic viral hepatitis B with delta-agent (principal)

== ENCOUNTER → 2023-10-21 | Outpatient (CLI) | payer MEDICARE, MEDICAID ==
[~2023-10-21] MED LIST changes: -RISP-7; -RISP-7 PO; +RISP0.5T82; +RISP0.5T82 PO
[2023-10-21 12:03] LABS: BASO # 0.1 10^3/uL (0.0-0.2); BASO % 0.8 % (0.0-1.0); EOS # 0.4 10^3/uL (0.0-0.5); EOS % 6.6 % (0.0-3.0); HEMATOCRIT 45.4 % (42.0-52.0); HEMOGLOBIN 15.7 g/dl (13.5-17.5); LYMPH # 2.1 10^3/uL (1.5-5.0); LYMPH % 34.7 % (24.0-44.0); MEAN CORPUSCULAR HEMOGLOBIN 30.6 pg (27.0-33.0); MEAN CORPUSCULAR HGB CONC 34.6 g/dl (32.0-36.5); MEAN CORPUSCULAR VOLUME 88.5 fl (80.0-96.0); MONO # 0.7 10^3/uL (0.0-0.8); MONO % 12.1 % (2.0-8.0); NEUTROPHILS # 2.8 10^3/uL (1.5-8.5); NEUTROPHILS % 45.5 % (36.0-66.0); PLATELET COUNT, AUTOMATED 204 10^3/uL (150-450); RED BLOOD COUNT 5.13 10^6/uL (4.30-6.10); WHITE BLOOD COUNT 6.1 10^3/uL (4.0-10.0)
[2023-10-21 12:26] LABS: HEMOGLOBIN A1c 4.8 % (4.0-6.0)
[2023-10-21 12:30] LABS: VALPROIC ACID (DEPAKOTE) 31.6 UG/ML (50.0-100.0)
[2023-10-21 12:31] LABS: ALBUMIN 3.5 G/DL (3.2-5.2); ALKALINE PHOSPHATASE 88 U/L (46-116); ALT/SGPT 58 U/L (7.0-40); AST/SGOT 41 U/L (<34); BILIRUBIN,TOTAL 0.5 MG/DL (0.3-1.2); BLOOD UREA NITROGEN 15 MG/DL (9-23); CALCIUM LEVEL 9.4 MG/DL (8.5-10.1); CARBON DIOXIDE LEVEL 30 MMOL/L (20-31); CHLORIDE LEVEL 103 MMOL/L (98-107); CHOLESTEROL LEVEL 215 MG/DL (<200); CHOLESTEROL RISK RATIO 6.39 (<5); CREATININE FOR GFR 0.84 MG/DL (0.70-1.30); GLOMERULAR FILTRATION RATE > 60.0 (>60); GLUCOSE, FASTING 70 MG/DL (60-100); HDL CHOLESTEROL 33.6 MG/DL (>40); NON-HDL-C 181.4 MG/DL; POTASSIUM SERUM 4.3 MMOL/L (3.5-5.1); PROLACTIN 17.54 NG/ML (2.1-17.7); SODIUM LEVEL 140 MMOL/L (136-145); TOTAL PROTEIN 6.8 G/DL (5.7-8.2); TRIGLYCERIDES LEVEL 252 MG/DL (<150)
== END ==
LOC: M WUC 08:16
PROVIDERS: ATTEND Physician Assistant
DX: Z51.81 Encounter for therapeutic drug level monitoring (principal); Z79.899 Other long term (current) drug therapy

== ENCOUNTER → 2023-10-21 | Outpatient (CLI) | payer MEDICARE, MEDICAID | LOC: M RAD 07:39 | PROVIDERS: ATTEND Internal Medicine Gastroenterology | DX: B18.0 Chronic viral hepatitis B with delta-agent (principal); K76.0 Fatty (change of) liver, not elsewhere classified; R94.5 Abnormal results of liver function studies ==

== ENCOUNTER → 2023-10-21 | Outpatient (CLI) | payer MEDICARE, MEDICAID ==
[2023-10-21 12:32] LABS: ALBUMIN 3.5 G/DL (3.2-5.2); ALKALINE PHOSPHATASE 88 U/L (46-116); ALT/SGPT 58 U/L (7.0-40); AST/SGOT 42 U/L (<34); BILIRUBIN,DIRECT 0.1 MG/DL (<0.4); BILIRUBIN,TOTAL 0.5 MG/DL (0.3-1.2); CHOLESTEROL LEVEL 215 MG/DL (<200); CHOLESTEROL RISK RATIO 6.32 (<5); LDL CHOLESTEROL 129.6 MG/DL (<100); TOTAL PROTEIN 6.9 G/DL (5.7-8.2); TRIGLYCERIDES LEVEL 257 MG/DL (<150)
[2023-10-21 12:52] LABS: HEPATITIS B SURFACE ANTIGEN POSITIVE (NEGATIVE)
[2023-10-25 11:08] LABS: HBsAG CONFIRM SCRN Confirm. indicated (Negative); HBsAG NEUTRALIZATION Positive (.)
[2023-10-26 16:09] LABS: HBV <10 IU/mL (.); HEPATITIS BE ANTIBODY Positive (Negative); HEPATITIS BE ANTIGEN Positive (Negative)
== END ==
LOC: M WUC 08:27
PROVIDERS: ATTEND Internal Medicine Gastroenterology
DX: B18.0 Chronic viral hepatitis B with delta-agent (principal); R94.5 Abnormal results of liver function studies; K76.0 Fatty (change of) liver, not elsewhere classified; Z51.81 Encounter for therapeutic drug level monitoring; Z79.899 Other long term (current) drug therapy; Z11.59 Encounter for screening for other viral diseases; Z72.89 Other problems related to lifestyle

== ENCOUNTER → 2024-03-20 | Outpatient (CLI) | payer MEDICARE, MEDICAID ==
[~2024-03-20] MED LIST changes: +GABA-1172; +GABA-1172 PO; +GABA-1490; +GABA-1490 PO; -GABA-282; -GABA-282 PO; -GABA600T4; -GABA600T4 PO
[2024-03-20 09:52] LABS: AMORPHOUS SEDIMENT MODERATE (NEGATIVE); APPEARANCE, URINE HAZY (CLEAR); BACTERIA, URINE AUTO NEGATIVE (NEGATIVE); BILIRUBIN, URINE AUTO NEGATIVE (NEGATIVE); BLOOD, URINE BLOOD NEGATIVE (NEGATIVE); COLOR, URINE YELLOW (YELLOW); GLUCOSE, URINE (UA) AUTO NEGATIVE (NEGATIVE); KETONE, URINE AUTO NEGATIVE (NEGATIVE); LEUKOCYTE ESTERASE, URINE AUTO NEGATIVE (NEGATIVE); MUCUS, URINE SMALL (NEGATIVE); NITRITE, URINE AUTO NEGATIVE (NEGATIVE); PROTEIN, URINE AUTO NEGATIVE (NEGATIVE); RBC, URINE AUTO 0 /HPF (0-3); SPECIFIC GRAVITY URINE AUTO 1.016 (1.002-1.035); SQUAMOUS EPITHELIAL CELL UR AU 0 /HPF (0-6); UROBILINOGEN, URINE AUTO 0.2 mg/dL (0.0-2.0); WBC, URINE AUTO 0 /HPF (0-3)
[2024-03-20 09:57] LABS: BASO # 0.1 10^3/uL (0.0-0.2); BASO % 0.8 % (0.0-1.0); EOS # 0.3 10^3/uL (0.0-0.5); EOS % 4.4 % (0.0-3.0); HEMATOCRIT 46.7 % (42.0-52.0); HEMOGLOBIN 16.1 g/dl (13.5-17.5); LYMPH # 2.3 10^3/uL (1.5-5.0); LYMPH % 29.3 % (24.0-44.0); MEAN CORPUSCULAR HEMOGLOBIN 30.4 pg (27.0-33.0); MEAN CORPUSCULAR HGB CONC 34.5 g/dl (32.0-36.5); MEAN CORPUSCULAR VOLUME 88.3 fl (80.0-96.0); MONO # 0.8 10^3/uL (0.0-0.8); MONO % 10.3 % (2.0-8.0); NEUTROPHILS # 4.2 10^3/uL (1.5-8.5); NEUTROPHILS % 54.9 % (36.0-66.0); PLATELET COUNT, AUTOMATED 226 10^3/uL (150-450); RED BLOOD COUNT 5.29 10^6/uL (4.30-6.10); WHITE BLOOD COUNT 7.7 10^3/uL (4.0-10.0)
[2024-03-20 10:20] LABS: ALKALINE PHOSPHATASE 111 U/L (46-116); ALT/SGPT 56 U/L (7.0-40); AST/SGOT 42 U/L (<34); BILIRUBIN,TOTAL 0.6 MG/DL (0.3-1.2); BLOOD UREA NITROGEN 14 MG/DL (9-23); CALCIUM LEVEL 9.8 MG/DL (8.5-10.1); CARBON DIOXIDE LEVEL 31 MMOL/L (20-31); CHLORIDE LEVEL 103 MMOL/L (98-107); CHOLESTEROL LEVEL 213 MG/DL (<200); CHOLESTEROL RISK RATIO 6.55 (<5); CREATININE FOR GFR 0.86 MG/DL (0.70-1.30); FREE T4 1.45 NG/DL (0.89-1.76); GLOMERULAR FILTRATION RATE > 60.0 (>60); GLUCOSE, FASTING 78 MG/DL (60-100); HDL CHOLESTEROL 32.5 MG/DL (>40); IRON (FE) 109 UG/DL (65-175); LDL CHOLESTEROL 149.9 MG/DL (<100); NON-HDL-C 180.5 MG/DL; POTASSIUM SERUM 4.2 MMOL/L (3.5-5.1); SODIUM LEVEL 138 MMOL/L (136-145); TOTAL PROTEIN 7.3 G/DL (5.7-8.2); TRIGLYCERIDES LEVEL 153 MG/DL (<150)
== END ==
LOC: M WUC 08:29
PROVIDERS: ATTEND Family Medicine
DX: Z00.00 Encounter for general adult medical examination without abnormal findings (principal); R94.5 Abnormal results of liver function studies; E78.00 Pure hypercholesterolemia, unspecified; D50.9 Iron deficiency anemia, unspecified

== ENCOUNTER → 2024-05-02 | Outpatient (CLI) | payer MEDICARE, MEDICAID ==
[~2024-05-02] MED LIST changes: -CYPR4TA PO; +CYPR4TAB36 PO
[2024-05-02 13:49] LABS: ALBUMIN 3.9 G/DL (3.2-5.2); ALKALINE PHOSPHATASE 104 U/L (40-129); ALT/SGPT 60 U/L (7.0-40); AST/SGOT 47 U/L (<34); BILIRUBIN,DIRECT 0.1 MG/DL (<0.4); BILIRUBIN,TOTAL 0.5 MG/DL (0.3-1.2); BLOOD UREA NITROGEN 16 MG/DL (9-23); CALCIUM LEVEL 9.9 MG/DL (8.5-10.1); CARBON DIOXIDE LEVEL 28 MMOL/L (20-31); CHLORIDE LEVEL 103 MMOL/L (98-107); FERRITIN 37.9 NG/ML (10.5-307.3); GLOMERULAR FILTRATION RATE > 60.0 (>60); GLUCOSE, FASTING 83 MG/DL (60-100); POTASSIUM SERUM 4.3 MMOL/L (3.5-5.1); SODIUM LEVEL 138 MMOL/L (136-145); TOTAL PROTEIN 7.5 G/DL (5.7-8.2)
[2024-05-02 16:03] LABS: HEPATITIS B SURFACE ANTIBODY NEGATIVE (POSITIVE)
[2024-05-03 07:27] LABS: T P ELECTROPHORESIS SO 7.2 g/dL (6.1-8.1)
[2024-05-04 09:38] LABS: ALPHA 1 ANTITRYPSIN 128 mg/dL (83-199)
[2024-05-04 11:58] LABS: HBV IU/mL <10 DETECTED IU/mL (NOT DETECTED); log 10 HBV IU/mL <1.00 DETECTED Log IU/mL (NOT DETECTED)
[2024-05-04 13:01] LABS: HEPATITIS B CORE ANTIBODY IGG REACTIVE (NON-REACTIVE)
[2024-05-04 14:27] LABS: ALBUMIN SPEP 4.6 g/dL (3.8-4.8); ALPHA-1-GLOBULINS SO 0.2 g/dL (0.2-0.3); ALPHA-2-GLOBULINS SO 0.5 g/dL (0.5-0.9); BETA 2 GLOBULIN 0.3 g/dL (0.2-0.5); BETA-GLOBULIN SO 0.4 g/dL (0.4-0.6); GAMMA GLOBULINS SO 1.1 g/dL (0.8-1.7)
[2024-05-04 15:27] LABS: ANA SCREEN, IFA NEGATIVE (NEGATIVE)
[2024-05-04 16:48] LABS: HEPATITIS A IgG TOTAL REACTIVE (NON-REACTIVE)
[2024-05-08 09:23] LABS: ANTI-SMOOTH MUSCLE ANTIBODY < 20 U (<20)
[2024-05-09 08:57] LABS: LIVER-KIDNEY MICROSOMAL ABY <= 20.0 U (<=20.0)
[2024-05-09 17:03] LABS: HEPATITIS BE ANTIGEN Reactive (NON REACTIV)
== END ==
LOC: M WUC 08:55
PROVIDERS: ATTEND Internal Medicine Gastroenterology
DX: B18.1 Chronic viral hepatitis B without delta-agent (principal); R79.89 Other specified abnormal findings of blood chemistry; K59.09 Other constipation; Z11.59 Encounter for screening for other viral diseases

== ENCOUNTER → 2024-05-17 | Outpatient (CLI) | payer MEDICARE, MEDICAID | LOC: M RAD 07:51 | PROVIDERS: ATTEND Internal Medicine Gastroenterology | DX: B18.1 Chronic viral hepatitis B without delta-agent (principal); R79.89 Other specified abnormal findings of blood chemistry; R93.2 Abnormal findings on diagnostic imaging of liver and biliary tract; D18.03 Hemangioma of intra-abdominal structures ==

== ENCOUNTER → 2024-07-31 | Outpatient (REF) | payer MEDICARE, MEDICAID, OTHER ==
[2024-07-31 10:49] LABS: BASO # 0.1 10^3/uL (0.0-0.2); BASO % 0.8 % (0.0-1.0); EOS # 0.4 10^3/uL (0.0-0.5); EOS % 6.3 % (0.0-3.0); HEMATOCRIT 48.5 % (42.0-52.0); HEMOGLOBIN 16.6 g/dl (13.5-17.5); LYMPH # 2.1 10^3/uL (1.5-5.0); LYMPH % 35.5 % (24.0-44.0); MEAN CORPUSCULAR HEMOGLOBIN 30.4 pg (27.0-33.0); MEAN CORPUSCULAR HGB CONC 34.2 g/dl (32.0-36.5); MEAN CORPUSCULAR VOLUME 88.8 fl (80.0-96.0); MONO # 0.6 10^3/uL (0.0-0.8); MONO % 10.1 % (2.0-8.0); NEUTROPHILS # 2.8 10^3/uL (1.5-8.5); NEUTROPHILS % 47.1 % (36.0-66.0); PLATELET COUNT, AUTOMATED 232 10^3/uL (150-450); RED BLOOD COUNT 5.46 10^6/uL (4.30-6.10); WHITE BLOOD COUNT 5.9 10^3/uL (4.0-10.0)
[2024-07-31 11:22] LABS: IRON (FE) 117 UG/DL (65-175)
[2024-07-31 11:23] LABS: ALBUMIN 3.9 G/DL (3.2-5.2); ALKALINE PHOSPHATASE 125 U/L (40-129); ALT/SGPT 76 U/L (7.0-40); AST/SGOT 60 U/L (<34); BILIRUBIN,TOTAL 0.6 MG/DL (0.3-1.2); BLOOD UREA NITROGEN 15 MG/DL (9-23); CALCIUM LEVEL 9.5 MG/DL (8.5-10.1); CARBON DIOXIDE LEVEL 30 MMOL/L (20-31); CHLORIDE LEVEL 102 MMOL/L (98-107); CHOLESTEROL LEVEL 210 MG/DL (<200); CREATININE FOR GFR 0.94 MG/DL (0.70-1.30); FOLATE 15.6 NG/ML (>5.4); GLOMERULAR FILTRATION RATE > 60.0 (>60); GLUCOSE, FASTING 74 MG/DL (60-100); HDL CHOLESTEROL 34.4 MG/DL (>40); LDL CHOLESTEROL 139.6 MG/DL (<100); NON-HDL-C 175.6 MG/DL; POTASSIUM SERUM 4.6 MMOL/L (3.5-5.1); SODIUM LEVEL 139 MMOL/L (136-145); THYROID STIMULATING HORMONE 2.718 uIU/ML (0.55-4.78); TOTAL 25(OH) VITAMIN D 40.2 NG/ML (20.0-100.0); TOTAL PROTEIN 7.4 G/DL (5.7-8.2); TRIGLYCERIDES LEVEL 180 MG/DL (<150)
[2024-07-31 11:24] LABS: FREE T4 1.44 NG/DL (0.89-1.76)
[2024-07-31 11:25] LABS: VITAMIN B12 LEVEL 1222 PG/ML (211-911)
== END ==
LOC: M LABWUC 09:36
PROVIDERS: ATTEND Internal Medicine
DX: Z00.00 Encounter for general adult medical examination without abnormal findings (principal); F84.0 Autistic disorder; R94.5 Abnormal results of liver function studies; Z79.899 Other long term (current) drug therapy; F71 Moderate intellectual disabilities

== ENCOUNTER → 2025-03-19 | Outpatient (CLI) | payer MEDICARE, MEDICAID ==
[~2025-03-19] MED LIST changes: +DEPA250T PO; -DEPA250T2 PO
== END ==
LOC: M RAD 07:39
PROVIDERS: ATTEND Internal Medicine Gastroenterology
DX: B18.1 Chronic viral hepatitis B without delta-agent (principal); R93.2 Abnormal findings on diagnostic imaging of liver and biliary tract

== ENCOUNTER → 2025-05-14 | Outpatient (CLI) | payer MEDICARE, MEDICAID ==
[2025-05-14 18:38] LABS: ALT/SGPT 67 U/L (7.0-40); AST/SGOT 57 U/L (<34)
[2025-05-14 18:39] LABS: HEPATITIS B SURFACE ANTIBODY NEGATIVE (POSITIVE)
[2025-05-18 22:38] LABS: HEPATITIS BE ANTIGEN Nonreactive (NON REACTIV)
[2025-05-18 22:42] LABS: HEPATITIS BE ANTIBODY Reactive (NON REACTIV)
== END ==
LOC: M WUC 13:20
PROVIDERS: ATTEND Internal Medicine Gastroenterology
DX: B18.1 Chronic viral hepatitis B without delta-agent (principal); Z11.59 Encounter for screening for other viral diseases